=== PATIENT | male | born 1960 | race Hispanic/Latino ===

== ENCOUNTER 2016-09-04 10:30 | Emergency (ER) | payer SELFPAY ==
[2016-09-04 10:44] VITALS: BP 146/91
[2016-09-04] MEDS ORDERED: TORADOL IM ONE (11:55)
--- NOTE | 2016-09-04 11:59 | Emergency Department Report ---
HPI - General Chief Complaint: Fall Time Seen by Provider: 09/04/16 11:54 - HPI HPI: This is a 55-year-old male presents to the emergency department with complaint of left wrist pain after slipping on the ice and falling down a few stairs. He denies hitting his head or any loss of consciousness. He cannot member whether it was outstretched hand. He denies any deformity. He is right- hand dominant. He has not taken anything for symptoms prior to presentation. The patient drove himself in to be seen today. He does not currently have a primary care doctor. He does have previous history of surgery to that left wrist but does not have any current establish care with an orthopedist. ED Past Medical Hx - Past Medical History Previous Medical History?: Yes Additional medical history: DEPRESSION, left wrist pain - Surgical History Past Surgical History?: Yes Additional Surgical History: LEFT LOWER LEG --ORTHO SURGERY. NASAL SURGERY. LEFT WRIST SURGERY - Social History Smoking Status: Current Every Day Smoker Substance Use Type: Prescribed - Medications Home Medications: Home Medications Medication Instructions Recorded Confirmed Last Taken Type FLUoxetine [PROzac] 20 mg PO QDAY 09/04/16 09/04/16 Unknown History HYDROcodone/APAP 5-325 [[place] 1 each PO Q6HR PRN #14 tablet 09/04/16 Unknown Rx 5-325 mg TAB] ED Review of Systems ROS: Stated complaint: LEFT WRIST PAIN Other details as noted in HPI Comment: All other systems reviewed and negative Constitutional: denies: chills, fever Eyes: denies: eye pain, eye discharge, vision change ENT: denies: ear pain, throat pain Respiratory: denies: cough, shortness of breath, wheezing Cardiovascular: denies: chest pain, palpitations Endocrine: no symptoms reported Gastrointestinal: denies: abdominal pain, nausea, diarrhea Genitourinary: denies: urgency, dysuria Musculoskeletal: arthralgia. denies: back pain Skin: denies: rash, lesions Neurological: denies: headache, weakness, paresthesias Physical Exam - Physical Exam Vital Signs: Vital Signs 09/04/16 10:41 Temperature 97.6 F Pulse Rate 60 Respiratory 18 Rate Blood Pressure 146/91 O2 Sat by Pulse 100 Oximetry Physical Exam: GENERAL: The patient is well-developed well-nourished. HEENT: Normocephalic. Atraumatic. Extraocular motions are intact. Patient has moist mucous membranes. NECK: Supple. Trachea is midline. CHEST/LUNGS: Clear to auscultation. There is no respiratory distress noted. HEART/CARDIOVASCULAR: Regular. There is no tachycardia. There is no gallop rub or murmur. ABDOMEN: Abdomen is soft, nontender. SKIN: There is no rash. There is no edema. There is no diaphoresis. NEURO: The patient is awake, alert, and oriented. The patient is cooperative. The patient has no focal neurologic deficits. The patient has normal speech and gait. MUSCULOSKELETAL: Patient has tenderness to palpation to the circumferential left wrist but no obvious deformity. Decreased movement of the left hand at the wrist secondary to pain. Radial pulses +2 over 4 bilaterally. ED Course Vital Signs 09/04/16 10:41 Temperature 97.6 F Pulse Rate 60 Respiratory 18 Rate Blood Pressure 146/91 O2 Sat by Pulse 100 Oximetry ED Medical Decision Making - Radiology Data Radiology results: image reviewed interpreted by me: X-ray of the left wrist does not show any fracture or deformity or any acute process. - Medical Decision Making 55-year-old male presents to the emergency department with left wrist pain after a slip and fall the ice. No obvious deformity but he has some decreased movement secondary to pain. X-ray does not show any fracture, dislocation or any acute process. Patient placed in a orthopedic splint and will be given a referral for a refill for follow-up. Pain medication and anti-inflammatory's. He will return to the ER with any worsening of symptoms or any acute distress. - Differential Diagnosis wrist fracture, dislocation, strain/sprain, contusion, tendinitis Critical Care Time: No Critical care attestation.: If time is entered above; I have spent that time in minutes in the direct care of this critically ill patient, excluding procedure time. ED Disposition Clinical Impression: Left wrist pain Fall Qualifiers: Encounter type: initial encounter Qualified Code(s): W19.XXXA - Unspecified fall, initial encounter Disposition: DISCHARGED TO HOME OR SELFCARE Is pt being admited?: No Does the pt Need Aspirin: No Condition: Good Instructions: Arthralgia (ED), Wrist Injury (ED), Fall Prevention (ED) Additional Instructions: Please follow-up with the orthopedist that you have been given a referral to, Dr. Saldana. Return to the emergency department with any worsening of your symptoms or any acute distress. You've been prescribed a medication that is sedating. Therefore this medication cannot be mixed with alcohol, or taken prior to driving, working, or being responsible for children. Prescriptions: HYDROcodone/APAP 5-325 [[place] 5-325 mg TAB] 1 each PO Q6HR PRN #14 tablet PRN Reason: Pain Referrals: PRIMARY CARE, [Primary Care Provider] - 3-5 Days CLAUDIA SALDANA MD [Staff Physician] - 3-5 Days Time of Disposition: 12:19
--- NOTE | 2016-09-05 11:20 | XRay Report ---
LEFT WRIST, 4 views: HISTORY: Left wrist pain. Routine views demonstrate the carpal bones to be well mineralized with well preserved bony mineralization and interosseous joint spaces. The carpal and adjacent articular bones have normal contours. The surrounding soft tissues are unremarkable. IMPRESSION: Normal study.
== END 2016-09-04 12:39 | disposition home or self-care (01) ==
LOC: ED 10:30
DX: M25.532 Pain in left wrist (principal); F17.200 Nicotine dependence, unspecified, uncomplicated; Z98.890 Other specified postprocedural states; W10.8XXA Fall (on) (from) other stairs and steps, initial encounter
CPT/HCPCS: 29125; 73110; 96372; 99283; J1885

== ENCOUNTER 2017-06-13 18:53 | Emergency (ER) | payer SELFPAY ==
[2017-06-13 20:05] VITALS: BP 151/75
[2017-06-13 20:17] LABS: Basophils % (Auto) 0.3 % (0.0-1.8); Eosinophils % (Auto) 1.8 % (0.0-4.3); Hematocrit 47.2 % (35.5-45.6); Hemoglobin 16.3 gm/dl (11.8-15.2); Mean Corpuscular HGB Conc 35 % (32-34); Mean Corpuscular Hemoglobin 33 pg (28-32); Mean Corpuscular Volume 96 fl (84-94); Platelet Count 307 K/mm3 (140-440); Red Blood Count 4.92 M/mm3 (3.65-5.03); White Blood Count 9.9 K/mm3 (4.5-11.0)
[2017-06-13 20:28] LABS: Alanine Aminotransferase 27 units/L (7-56); Albumin 4.2 g/dL (3.9-5); Albumin/Globulin Ratio 1.3 %; Alkaline Phosphatase 85 units/L (35-129); Anion Gap 17 mmol/L; BUN/Creatinine Ratio 8; Blood Urea Nitrogen 6 mg/dL (9-20); Carbon Dioxide 27 mmol/L (22-30); Chloride 101.3 mmol/L (98-107); Glucose 181 mg/dL (75-100); Potassium 3.9 mmol/L (3.6-5.0); Sodium 141 mmol/L (137-145); Total Protein 7.5 g/dL (6.3-8.2)
--- NOTE | 2017-06-13 21:26 | XRay Report ---
FINAL REPORT EXAM: XR CHEST ROUTINE 2V HISTORY: Shortness of breath TECHNIQUE: Two view chest PA and lateral PRIORS: None. FINDINGS: Cardiac and mediastinal contours are unremarkable. No focal pulmonary infiltrate is identified. No pleural fluid collection seen. Pulmonary vasculature is unremarkable. IMPRESSION: Negative two-view chest
[2017-06-14] MEDS ORDERED: TYLENOL/CODEINE PO ONE (02:40)
--- NOTE | 2017-06-14 02:45 | Emergency Department Report ---
Pediatric URI - HPI Chief Complaint: Upper Respiratory Infection Stated Complaint: COUGH/SORE THROAT/CONGESTION Duration: 3 weeks Severity: Mild Symptoms: Yes Sore Throat, Yes Cough, Yes Able to Tolerate Fluids, Yes Good Urine Output, No Rhinorrhea, No Ear Pain, No Shortness of Breath, No Sick Contacts, No Listless Behavior Other History: 56 year old male presents to ED with productive cough x3 weeks and congestion and sore throat x4 days. patient states he is 40+ year smoker but is unsure if he has COPD. patient denies being diabetic or asthmatic. patient is stable, neurologically intact and in no acute distress. patient has had bloodwork ordered prior to being seen or discussed with me. ED Review of Systems ROS: Stated complaint: COUGH/SORE THROAT/CONGESTION Other details as noted in HPI Constitutional: denies: chills, fever Eyes: denies: eye pain, eye discharge, vision change ENT: denies: ear pain, throat pain Respiratory: cough. denies: shortness of breath, wheezing Cardiovascular: denies: chest pain, palpitations Endocrine: no symptoms reported Gastrointestinal: denies: abdominal pain, nausea, diarrhea Genitourinary: denies: urgency, dysuria Musculoskeletal: denies: back pain, joint swelling, arthralgia Skin: denies: rash, lesions Neurological: denies: headache, weakness, paresthesias Psychiatric: denies: anxiety, depression Hematological/Lymphatic: denies: easy bleeding, easy bruising Pediatric Past Medical History - Surgeries & Procedures Additional Surgical History: LEFT LOWER LEG --ORTHO SURGERY. NASAL SURGERY. LEFT WRIST SURGERY - Chronic Health Problems Additional medical history: DEPRESSION, left wrist pain ED Peds URI Exam - Exam General: Vital signs noted. No distress. Alert and acting appropriately. HEENT: Yes Moist Mucous Membranes, No Pharyngeal Erythema, No Pharyngeal Exudates, No Rhinorrhea, No Conjuctival Injection Ear: Neither TM Bulge, Neither TM Erythema Neck: Yes Supple, No Adenopathy Lungs: Yes Good Air Exchange, Yes Cough, No Wheezes, No Ronchi, No Stridor, No Labored Respirations, No Retractions, No Use of Accessory Muscles, No Other Abnormal Lung Sounds Heart: Yes Regular, No Murmur Abdomen: Yes Normal Bowel Sounds, No Tenderness, No Peritoneal Signs Skin: No Rash, No Eczema Neurologic: Alert and oriented, no deficits. Musculoskeletal: Unremarkable. ED Course Vital Signs 06/13/17 19:40 Temperature 98.7 F Pulse Rate 78 Respiratory 18 Rate Blood Pressure 151/75 [Right] O2 Sat by Pulse 100 Oximetry ED Medical Decision Making - Lab Data Result diagrams: 06/13/17 19:46 06/13/17 19:46 Laboratory Results - last 24 hr 06/13/17 06/13/17 06/13/17 19:46 19:46 19:46 WBC 9.9 RBC 4.92 Hgb 16.3 H Hct 47.2 H MCV 96 H MCH 33 H MCHC 35 H RDW 14.0 Plt Count 307 Lymph % (Auto) 39.6 H Smith % (Auto) 4.6 Eos % (Auto) 1.8 Baso % (Auto) 0.3 Lymph # 3.9 Smith # 0.5 Eos # 0.2 Baso # 0.0 Seg Neutrophils % 53.7 Seg Neutrophils # 5.3 Sodium 141 Potassium 3.9 Chloride 101.3 Carbon Dioxide 27 Anion Gap 17 BUN 6 L Creatinine 0.8 Estimated GFR > 60 BUN/Creatinine Ratio 8 Glucose 181 H Lactic Acid 1.60 Calcium 9.0 Total Bilirubin 0.50 AST 23 ALT 27 Alkaline Phosphatase 85 Troponin T < 0.010 C-Reactive Protein NT-Pro-B Natriuret Pep Total Protein 7.5 Albumin 4.2 Albumin/Globulin Ratio 1.3 TSH 06/13/17 06/14/17 19:46 02:23 WBC RBC Hgb Hct MCV MCH MCHC RDW Plt Count Lymph % (Auto) Smith % (Auto) Eos % (Auto) Baso % (Auto) Lymph # Smith # Eos # Baso # Seg Neutrophils % Seg Neutrophils # Sodium Potassium Chloride Carbon Dioxide Anion Gap BUN Creatinine Estimated GFR BUN/Creatinine Ratio Glucose Lactic Acid Calcium Total Bilirubin AST ALT Alkaline Phosphatase Troponin T C-Reactive Protein 1.00 NT-Pro-B Natriuret Pep 51.32 Total Protein Albumin Albumin/Globulin Ratio TSH 1.720 - Radiology Data Radiology results: report reviewed XR chest Negative two view chest - Medical Decision Making 56 year old male presents to ED with 3week cough, congestion and sore throat x4 days. patient has negative strep and normal imaging study. patient is stable, neurologically intact and in no acute distress. patient will be placed on short course of PO Abx due to duration of symptoms and patient being unsure if he has COPD. Critical care attestation.: If time is entered above; I have spent that time in minutes in the direct care of this critically ill patient, excluding procedure time. ED Disposition Clinical Impression: Bronchitis Disposition: DC- TO HOME OR SELFCARE Is pt being admited?: No Does the pt Need Aspirin: No Condition: Stable Instructions: Acute Bronchitis (ED) Prescriptions: Azithromycin [Zithromax Z-MARIAN] 250 mg PO QAM #1 pack Fluticasone [Flonase] 1 spray NS QDAY #1 bottle methylPREDNISolone [Medrol] 4 mg PO QAM #1 tab.ds.pk Referrals: [facility] [Outside] - 2-3 Days ALEXANDRA SHELTON MD [Staff Physician] - 2-3 Days
== END 2017-06-14 03:14 | disposition home or self-care (01) ==
LOC: ED 18:53
DX: J40 Bronchitis, not specified as acute or chronic (principal)
CPT/HCPCS: 36415; 71020; 80053; 82140; 83880; 84443; 84484; 85025; 86140; 87116; 87430; 93005; 93010; 99284

== ENCOUNTER 2019-03-13 09:51 | Inpatient (IN) | payer OTHER ==
--- NOTE | 2019-03-13 10:52 | Emergency Department Report ---
HPI - General Chief Complaint: Weakness Time Seen by Provider: 03/13/19 10:36 - HPI HPI: 58 yo C M presents to the ED via EMS from home with the complaint of generalized weakness and fatigue since yesterday. He had some N/V/D last night but that has since resolved. No fever, CP, SOB, DOZIER. He has a pmhx of HTN, DM, and high cholesterol but it does not appear he is on medication for this. No recent travel or sick contacts at home. No PCP. He is a tobacco smoker but denies illicit drugs or heavy alcohol use. ED Past Medical Hx - Past Medical History Previous Medical History?: Yes Hx Hypertension: Yes Hx Diabetes: Yes Additional medical history: DEPRESSION, left wrist pain - Surgical History Past Surgical History?: Yes Additional Surgical History: LEFT LOWER LEG --ORTHO SURGERY. NASAL SURGERY. LEFT WRIST SURGERY - Social History Smoking Status: Unknown if ever smoked - Medications Home Medications: Home Medications Medication Instructions Recorded Confirmed Last Taken Type No Known Home Medications [No 03/13/19 03/13/19 Unknown History Reported Home Medications] ED Review of Systems ROS: Stated complaint: MALAISE/WEAKNESS Other details as noted in HPI Comment: All other systems reviewed and negative Constitutional: weakness, other (fatigue). denies: chills, fever Eyes: denies: eye pain, vision change ENT: denies: ear pain, throat pain Respiratory: denies: cough, shortness of breath Cardiovascular: denies: chest pain, palpitations Gastrointestinal: nausea, vomiting, diarrhea. denies: abdominal pain Genitourinary: denies: dysuria, discharge Musculoskeletal: denies: back pain, arthralgia Skin: denies: rash, lesions Neurological: denies: headache, numbness, paresthesias Physical Exam - Physical Exam Vital Signs: Vital Signs 03/13/19 03/13/19 10:12 10:13 Temperature 98.4 F 98.4 F Pulse Rate 67 67 Respiratory 18 18 Rate Blood Pressure 158/67 Blood Pressure 158/67 [Left] O2 Sat by Pulse 93 93 Oximetry Physical Exam: GENERAL: The patient is well-developed well-nourished. HENT: Normocephalic. Atraumatic. Patient has moist mucous membranes. EYES: Extraocular motions are intact. Pupils equal reactive to light bilaterally. NECK: Supple. Trachea is midline. CHEST/LUNGS: Clear to auscultation. There is no respiratory distress noted. HEART/CARDIOVASCULAR: Regular. There is no tachycardia. There is no murmur. ABDOMEN: Abdomen is soft, nontender. Patient has normal bowel sounds. There is no abdominal distention. SKIN: Skin is warm and dry. NEURO: The patient is awake, alert, and oriented. The patient is cooperative. Patient has normal speech. No facial asymmetry. No pronator drift. MUSCULOSKELETAL: There is no tenderness or deformity. There is no limitation range of motion. There is no evidence of acute injury. ED Course Vital Signs 03/13/19 03/13/19 10:12 10:13 Temperature 98.4 F 98.4 F Pulse Rate 67 67 Respiratory 18 18 Rate Blood Pressure 158/67 Blood Pressure 158/67 [Left] O2 Sat by Pulse 93 93 Oximetry ED Medical Decision Making - Lab Data Result diagrams: 03/14/19 04:52 03/14/19 04:52 - EKG Data -: EKG Interpreted by Nd EKG shows normal: sinus rhythm, axis, intervals, QRS complexes, ST-T waves Rate: normal - EKG Data When compared to previous EKG there are: previous EKG unavailable Interpretation: normal EKG - Radiology Data Radiology results: report reviewed CT HEAD WITHOUT CONTRAST INDICATION / CLINICAL INFORMATION: weakness. Headache TECHNIQUE: Axial imaging performed from the skull apex through the skull base without the use of contrast. All CT scans at this location are performed using CT dose reduction for ALARA by means of automated exposure control. COMPARISON: None available. FINDINGS: HEMORRHAGE: None. EXTRA-AXIAL SPACES: Normal in size and morphology for the patient's age. VENTRICULAR SYSTEM: Normal in size and morphology for the patient's age. CEREBRAL PARENCHYMA: No significant abnormality. No acute territorial infarct. MIDLINE SHIFT OR HERNIATION: None. CEREBELLUM / BRAINSTEM: No significant abnormality. ORBITS: Normal as visualized. SOFT TISSUES of HEAD: No significant abnormality. CALVARIUM: No significant abnormality. PARANASAL SINUSES / MASTOID AIR CELLS: Normal as visualized. ADDITIONAL FINDINGS: None. IMPRESSION: 1. No acute intracranial abnormality. CTA head with intravenous contrast CLINICAL HISTORY: weakness, dizziness, difficulty with ambulation TECHNIQUE: 0.625 mm thick contiguous axial scans were obtained from the skull base to the skull vertex during rapid bolus administration of intravenous contrast material. Multiplanar reconstructions were produced in the coronal and sagittal planes. In addition 3 plane MIP instructions were produced and reviewed for this report. The axial source images and reconstructed images were reviewed for this report. All CT scans at this location are performed using CT dose reduction for ALARA by means of automated exposure control. FINDINGS: Calcified atherosclerotic plaque is seen along the course of the cavernous segments of both internal carotid arteries. There is no associated stenosis. There is no indication of intracranial stenosis or large vessel occlusion. There is no indication of vasculitis. There is no evidence of aneurysm or other vascular malformation. IMPRESSION: No indication of hemodynamically significant stenosis, large vessel occlusion or aneurysm. CONTRAST DOSE REPORT: Omnipaque 350: 100 ml administered intravenously. CTA neck with intravenous contrast material CLINICAL HISTORY: weakness, dizziness, difficulty with ambulation TECHNIQUE: Following acquisition of a timing bolus 0.63 mm thick contiguous axial scans were obtained from aortic arch to the skull base during rapid bolus intravenous contrast infusion. In addition to evaluation of axial source images multiplanar reconstructions were produced and reviewed for this report. Three-dimensional reconstructions were produced utilizing an independent workstation. These were also reviewed for this report. FINDINGS: No abnormalities are seen at the origins of the great vessels. Common carotid arteries, carotid bifurcations and cervical portions of the internal carotid arteries all have a normal appearance. There is no indication of hemodynamically significant stenosis. The right vertebral artery is dominant. There is no indication of stenosis along the course of the vertebral arteries. Both vertebral arteries contribute to the basilar artery origin. The basilar artery has an unremarkable appearance. The degree of stenosis, if any, is determined utilizing NASCET like criteria. In this case there is no indication of hemodynamically significant stenosis. Evaluation of the nonvascular soft tissue structures reveal no abnormality. There is no indication of cervical lymphadenopathy. No abnormalities are seen along the course of the airway. Visualized portions of the parotid glands and the submandibular salivary glands have a normal appearance. Thyroid gland has a normal appearance. Evaluation of the lung apices reveals no evidence of lung nodule or infiltrate. Evaluation of the cervical spine revealed no significant abnormalities. IMPRESSION: 1. No indication of hemodynamically significant stenosis at the carotid bifurcations or elsewhere on CTA neck. - Medical Decision Making This patient presents to the emergency department with a complaint of some generalized weakness and fatigue. On examination he has a little bit of ataxia but otherwise there is no facial asymmetry, pronator drift, slurred speech. The patient has full range of motion and muscle strength with laying on the gurney. Later in his ED course, we attempted to get him up and he does appear unsteady. He had a CT scan of the head without contrast that did not show any bleed, shift, mass, ischemia or any other acute process. His labs have been mostly unremarkable and do not show any etiology of his symptoms. Vital signs stable throughout his ED course including being afebrile. However the patient continues to have this generalized weakness, difficulty with ambulation and some signs of ataxia. He will be admitted to the hospital for further evaluation and treatment and was accepted for admission by the hospitalist, Dr Benson. The patient just completed a CT angiography of the head and neck, but the results are pending. In reviewing the patient's records, CTA of the head and neck did not show any acute process. But subsequently the patient has had a brain MRI that showed a cerebellum acute infarct showing CVA and brain MRA has shown some vertebral stenosis or occlusion. - Differential Diagnosis electrolyte abnormalities, hyperlipoidemia, CVA, TIA, dysrhythmia Critical Care Time: Yes Critical care time in (mins) excluding proc time.: 35 Critical care attestation.: If time is entered above; I have spent that time in minutes in the direct care of this critically ill patient, excluding procedure time. Critical care time was spent on this patient during his initial evaluation, multiple re- evaluations, ordering interpretation of labs and imaging. Critical Care Time: 35 minutes ED Disposition Clinical Impression: Ataxia, Weakness, Unable to ambulate Hypertension Qualifiers: Hypertension type: essential hypertension Qualified Code(s): I10 - Essential (primary) hypertension Fatigue Qualifiers: Fatigue type: unspecified Qualified Code(s): R53.83 - Other fatigue Disposition: DC-09 OP ADMIT IP TO THIS HOSP Is pt being admited?: Yes Condition: Serious Time of Disposition: 17:57 - Assessment Assessment Interval: Baseline - Level of Consciousness 1a. Level of Consciousness: alert/keenly responsive - LOC Questions 1b. LOC Questions: answers both correctly - LOC Command 1c. LOC Commands: performs tasks correctly - Best Gaze 2. Best Gaze: normal - Visual 3. Visual: no visual loss - Facial Palsy 4. Facial Palsy: normal symmetrical movement - Motor Arm 5a. Motor Arm Left: no drift 5b. Motor Arm Right: no drift - Motor Leg 6a. Motor Leg Left: no drift 6b. Motor Leg Right: no drift - Limb Ataxia 7. Limb Ataxia: present 2 limbs - Sensory 8. Sensory: normal - Best Language 9. Best Language: no aphasia - Dysarthria 10. Dysarthria: normal - Extinction and Inattention 11. Extinction/Inattention: no abnormality - Scoring Total Score: 2 Stroke Severity: Minor Stroke
[2019-03-13 11:26] LABS: Basophils # (Auto) 0.1 K/mm3 (0.0-0.1); Basophils % (Auto) 0.7 % (0.0-1.8); Hematocrit 47.7 % (35.5-45.6); Hemoglobin 16.6 gm/dl (11.8-15.2); Lymphocytes # (Auto) 1.3 K/mm3 (1.2-5.4); Lymphocytes % (Auto) 12.1 % (13.4-35.0); Mean Corpuscular HGB Conc 35 % (32-34); Mean Corpuscular Hemoglobin 34 pg (28-32); Mean Corpuscular Volume 97 fl (84-94); Monocytes # (Auto) 0.3 K/mm3 (0.0-0.8); Monocytes % (Auto) 2.6 % (0.0-7.3); Platelet Count 281 K/mm3 (140-440); Red Blood Count 4.94 M/mm3 (3.65-5.03); Red Cell Distribution Width 14.3 % (13.2-15.2)
[2019-03-13 11:46] LABS: Alanine Aminotransferase 29 units/L (7-56); Albumin 4.5 g/dL (3.9-5); BUN/Creatinine Ratio 14; Blood Urea Nitrogen 11 mg/dL (9-20); Calcium 9.2 mg/dL (8.4-10.2); Hemolysis Index 12
--- NOTE | 2019-03-13 12:42 | Cat Scan Report ---
CT HEAD WITHOUT CONTRAST INDICATION / CLINICAL INFORMATION: weakness. Headache TECHNIQUE: Axial imaging performed from the skull apex through the skull base without the use of cont rast. All CT scans at this location are performed using CT dose reduction for ALARA by means of auto mated exposure control. COMPARISON: None available. FINDINGS: HEMORRHAGE: None. EXTRA-AXIAL SPACES: Normal in size and morphology for the patient's age. VENTRICULAR SYSTEM: Normal in size and morphology for the patient's age. CEREBRAL PARENCHYMA: No significant abnormality. No acute territorial infarct. MIDLINE SHIFT OR HERNIATION: None. CEREBELLUM / BRAINSTEM: No significant abnormality. ORBITS: Normal as visualized. SOFT TISSUES of HEAD: No significant abnormality. CALVARIUM: No significant abnormality. PARANASAL SINUSES / MASTOID AIR CELLS: Normal as visualized. ADDITIONAL FINDINGS: None. IMPRESSION: 1. No acute intracranial abnormality. Signer Name: Chuck Kaye Jr, MD Signed: 03/13/2019 12:38 PM Workstation Name: [id number]
[2019-03-13 13:50] LABS: Bilirubin,Urine NEG (Negative); Blood,Urine NEG (Negative); Color,Urine Yellow (Yellow); Mucus,Urine FEW /HPF; Protein,Urine <15 mg/dL mg/dL (Negative); Urobilinogen,Urine < 2.0 mg/dL (<2.0); WBC,Urine < 1.0 /HPF (0.0-6.0)
[2019-03-13 14:00] LABS: Amphetamine Screen,Urine PRESUMPTIVE NEGATIVE; Benzodiazepines Screen,Urine PRESUMPTIVE NEGATIVE; Cannabinoid Screen,Urine PRESUMPTIVE NEGATIVE; Cocaine Screen,Urine PRESUMPTIVE NEGATIVE; Methadone Screen,Urine PRESUMPTIVE NEGATIVE; Opiate Screen,Urine PRESUMPTIVE NEGATIVE
[2019-03-13] MEDS ORDERED: NACL 0.9% 1000 ML 1,000 ML IV ONE (14:05)
[2019-03-13] MEDS ORDERED: ZOFRAN ONE (18:37)
[2019-03-13] MEDS ORDERED: ZOFRAN IV ONE (18:46)
--- NOTE | 2019-03-13 20:13 | Cat Scan Report ---
CTA head with intravenous contrast CLINICAL HISTORY: weakness, dizziness, difficulty with ambulation TECHNIQUE: 0.625 mm thick contiguous axial scans were obtained from the skull base to the skull vertex during ra pid bolus administration of intravenous contrast material. Multiplanar reconstructions were produced in the coronal and sagittal planes. In addition 3 plane MIP instructions were produced and reviewed f or this report. The axial source images and reconstructed images were reviewed for this report. All CT scans at this location are performed using CT dose reduction for ALARA by means of automated e xposure control. FINDINGS: Calcified atherosclerotic plaque is seen along the course of the cavernous segments of both internal carotid arteries. There is no associated stenosis. There is no indication of intracranial stenosis or large vessel occlusion. There is no indication of vasculitis. There is no evidence of aneurysm or other vascular malformation. IMPRESSION: No indication of hemodynamically significant stenosis, large vessel occlusion or aneurysm. CONTRAST DOSE REPORT: Omnipaque 350: 100 ml administered intravenously. CTA neck with intravenous contrast material CLINICAL HISTORY: weakness, dizziness, difficulty with ambulation TECHNIQUE: Following acquisition of a timing bolus 0.63 mm thick contiguous axial scans were obtained from aorti c arch to the skull base during rapid bolus intravenous contrast infusion. In addition to evaluation of axial source images multiplanar reconstructions were produced and reviewed for this report. Three- dimensional reconstructions were produced utilizing an independent workstation. These were also revie wed for this report. FINDINGS: No abnormalities are seen at the origins of the great vessels. Common carotid arteries, carotid bifurcations and cervical portions of the internal carotid arteries all have a normal appearance. There is no indication of hemodynamically significant stenosis. The right vertebral artery is dominant. There is no indication of stenosis along the course of the ve rtebral arteries. Both vertebral arteries contribute to the basilar artery origin. The basilar artery has an unremarkable appearance. The degree of stenosis, if any, is determined utilizing NASCET like criteria. In this case there is no indication of hemodynamically significant stenosis. Evaluation of the nonvascular soft tissue structures reveal no abnormality. There is no indication of cervical lymphadenopathy. No abnormalities are seen along the course of the airway. Visualized porti ons of the parotid glands and the submandibular salivary glands have a normal appearance. Thyroid gla nd has a normal appearance. Evaluation of the lung apices reveals no evidence of lung nodule or infil trate. Evaluation of the cervical spine revealed no significant abnormalities. IMPRESSION: 1. No indication of hemodynamically significant stenosis at the carotid bifurcations or elsewhere on CTA neck. Contrast dose report: Omnipaque 350: 100 ml, administered intravenously All CT examinations performed at this facility utilize modulated dose reduction, iterative reconstruc tion or weight-based dosing, as appropriate, to obtain a radiation dose which is as low as can reason ably be achieved. Signer Name: Jude Yin MD Signed: 03/13/2019 8:08 PM Workstation Name: [id number] Signer Name: Jude Yin MD Signed: 03/13/2019 8:09 PM Workstation Name: [id number]
[2019-03-13] MEDS ORDERED: D50W (25GM) Syringe IV PRN (22:25)
--- NOTE | 2019-03-13 23:49 | Event Note ---
Date: 03/13/19 See dictated history and physical in the reports Ataxia--rule out cerebrovascular accident Dehydration
[2019-03-13] MEDS ORDERED: TYLENOL PO PRN (23:55)
[2019-03-13] MEDS ORDERED: REGLAN IV PRN (23:55)
[2019-03-13] MEDS ORDERED: SODIUM CHLORIDE FLUSH SYRINGE 10 ML IV PRN (23:55)
[2019-03-13] MEDS ORDERED: PERCOCET 5/325 PO PRN (23:55)
--- NOTE | 2019-03-14 00:06 | History and Physical Report ---
CHIEF COMPLAINT: 1. Nausea, vomiting, and diarrhea since last night. 2. Severe weakness. 3. Difficulty walking. HISTORY OF PRESENT ILLNESS: A 58-year-old with history of hypertension, diabetes, and depression, comes in for persistent nausea and vomiting since last night and also diarrhea. The patient feels very weak and states that he is not able to stand and walk. The patient feels very dehydrated. No fever, no chills. PAST MEDICAL HISTORY: Significant for hypertension, diabetes, and depression. PAST SURGICAL HISTORY: Left lower leg orthopedic surgery, left wrist surgery. SOCIAL HISTORY: Does not smoke. No alcohol, no recreational drugs. FAMILY HISTORY: Hypertension. CURRENT MEDICATIONS: None. REVIEW OF SYSTEMS: Significant for nausea, vomiting, diarrhea for the last 24 hours. Also unable to walk, very unsteady while standing. Otherwise, review of systems negative. PHYSICAL EXAMINATION: GENERAL: Middle-aged male, cooperative during examination. VITAL SIGNS: Temperature 98.4, pulse is 67, respirations are 18, blood pressure 158/67. HEENT: Unremarkable. Pupils equal and reactive. Tongue is dry. NECK: Supple, no lymphadenopathy, no thyromegaly. LUNGS: Clear to auscultation and percussion. Good air entry. CARDIOVASCULAR: S1, S2 heard. No gallop, no murmur, no rub. Apical impulse in left fifth intercostal space and midclavicular line. ABDOMEN: Soft and benign. No hepatosplenomegaly. No guarding, no rigidity. Hernial orifices are normal. EXTREMITIES: Good pedal pulses. No pedal edema. CENTRAL NERVOUS SYSTEM: Alert and oriented x 4. Nonfocal exam. The patient ataxic and unable to walk, but no focal weakness. LABORATORY DATA: Significant for white count of 11,100, H and H of 16.6 and 47.7, platelet count is 281,000. ABG: pH of 7.4, pCO2 of 37.3, pO2 of 67, bicarbonate of 23.3. Sodium is 139, potassium is 5.1, glucose is 286. LFTs are normal. Drug screen was negative. Head CT shows no acute findings, no acute intracranial abnormalities. Head CTA was normal; no indication of hemodynamically significant stenosis. Neck CTA was normal. ASSESSMENT AND PLAN: 1. Acute dehydration secondary to severe nausea, vomiting, dehydration. Treat symptomatically. 2. Hyperkalemia, mild, should resolve with IV fluids. 3. Ataxia, rule out cerebrovascular accident, especially posterior cerebral circulation. We will get MRI/MRA, echocardiogram and carotid duplex scan. 4. Hypertension. Add losartan 50 mg daily. 5. Type 2 diabetes. Accu-Chek, hemoglobin A1c. Start on glimepiride 2 mg p.o. daily. The patient not on any medications, Accu-Cheks a.c. and at bedtime and coverage. 6. Deep venous thrombosis prophylaxis. Lovenox 40 mg subcutaneous daily. JOB# [id number] VSM/NTS
[2019-03-14] MEDS: PEPCID IV SCH ×3 (00:44→21:35)
[2019-03-14] MEDS: NACL 0.9% 1000 ML 1,000 ML IV SCH ×2 (00:44→16:53)
[2019-03-14] MEDS ORDERED: SODIUM CHLORIDE FLUSH SYRINGE 10 ML IV PRN (01:19)
[2019-03-14] MEDS: ZOFRAN IV PRN ×2 (06:08→13:13)
[2019-03-14 07:07] LABS: Alanine Aminotransferase 25 units/L (7-56); BUN/Creatinine Ratio 17; Blood Urea Nitrogen 12 mg/dL (9-20); Calcium 8.6 mg/dL (8.4-10.2); Hemolysis Index 13
[2019-03-14 07:18] LABS: Basophils # (Auto) 0.1 K/mm3 (0.0-0.1); Basophils % (Auto) 0.4 % (0.0-1.8); Eosinophils # (Auto) 0.1 K/mm3 (0.0-0.4); Eosinophils % (Auto) 0.6 % (0.0-4.3); Hematocrit 47.6 % (35.5-45.6); Hemoglobin 16.2 gm/dl (11.8-15.2); Lymphocytes # (Auto) 2.6 K/mm3 (1.2-5.4); Lymphocytes % (Auto) 20.7 % (13.4-35.0); Mean Corpuscular HGB Conc 34 % (32-34); Mean Corpuscular Hemoglobin 33 pg (28-32); Mean Corpuscular Volume 98 fl (84-94); Monocytes # (Auto) 0.9 K/mm3 (0.0-0.8); Platelet Count 263 K/mm3 (140-440); Red Blood Count 4.88 M/mm3 (3.65-5.03); Red Cell Distribution Width 14.4 % (13.2-15.2)
[2019-03-14] MEDS: HumuLIN R SUB-Q SCH ×4 (08:45→21:38)
--- NOTE | 2019-03-14 10:38 | Vascular Lab Report ---
"DUPLEX DOPPLER ULTRASOUND CAROTID, BILATERAL INDICATION: stroke. FINDINGS: RIGHT CAROTID: Mild atherosclerotic plaque. Right CCA velocity: 123 cm/sec. Right ICA peak systolic velocity: 82 cm/sec. ICA/CCA PSV Ratio: Normal. Right Vertebral Artery: Antegrade flow. LEFT CAROTID: Mild atherosclerotic plaque. Left CCA velocity: 108 cm/sec. Left ICA peak systolic velocity: 98 cm/sec. ICA/CCA PSV Ratio: Normal. Left Vertebral Artery: Antegrade flow. IMPRESSION: 1. Right Internal Carotid Artery: Less than 50% diameter stenosis. 2. Left Internal Carotid Artery: Less than 50% diameter stenosis. Velocity criteria are extrapolated from diameter data as defined by the Society of Radiologists in Ul trasound Consensus Conference, Radiology 2003; 229;340-346. Degree of Stenosis (%) || ICA PSV (cm/sec) || Plaque estimate (%) || ICA/CCA PSV Ratio Normal <125 None <2.0 <50 <125 <50 <2.0 50-69 125-230 50 2.0-4.0 70 but less than 100 >230 50 >4.0 Near occlusion High, low, or none visible variable Total occlusion None visible; no lumen N/A Signer Name: Oleagrio Bernal MD Signed: 03/14/2019 10:33 AM Workstation Name: [id number]"
--- NOTE | 2019-03-14 11:43 | Magnetic Resonance Report ---
MRI BRAIN WITHOUT CONTRAST INDICATION / CLINICAL INFORMATION: stroke. TECHNIQUE: Multiplanar, multisequence MR images of the brain were obtained. COMPARISON: None available. FINDINGS: BRAIN / INTRACRANIAL CONTENTS: There is acute infarct involving the superior right cerebellum measuri ng of 4.0 cm in greatest transverse dimension. This finding would be within the right superior cerebe llar artery distribution and appears to involve the right superior cerebellar peduncle. There is asso ciated edema with mild degree of mass effect. The ventricular system appears appropriate in size give n the mild degree of cerebral atrophy. The brain otherwise demonstrate appropriate signal characteristics for age. The diffusion imaging rev eals no evidence of acute supratentorial infarct at. No extra-axial fluid collections are identified at. CRANIOCERVICAL JUNCTION: No significant abnormality. VASCULAR FLOW-VOIDS: No significant abnormality. ORBITS: No significant abnormality of visualized orbits. SINUSES / MASTOIDS: No significant abnormality of the visualized paranasal sinuses or mastoid air pako ls. ADDITIONAL FINDINGS: None. IMPRESSION: 1. There is an acute to infarct involving the superior right cerebellum as detailed above. Signer Name: Bethel Sy MD Signed: 03/14/2019 11:39 AM Workstation Name: [id number]
--- NOTE | 2019-03-14 11:56 | Magnetic Resonance Report ---
MR a head without contrast Clinical history: Cerebrovascular accident, weakness FINDINGS: The motion degrades the image quality. However, there is absence of signal within the proxi mal intracranial segments of the vertebral arteries bilaterally compatible with occlusion or very slo w flow. Furthermore, there appear to be a thrombus within the dominant right vertebral artery this re gion on the CTA of 03/13/2019. Flow is seen within the basilar artery though there is mild irregularit y. Furthermore, there is mild to moderate smooth narrowing of the more distal basilar artery. Acute i nfarct was seen within the right superior cerebellar artery territory on the copy MRI. Findings are compatible with mild atherosclerotic disease involving the distal internal carotid arter ies. However, there is no significant focal stenosis involving the anterior circulation vessels by NA SCET criteria. There is mild develop mental hypoplasia of the A1 segment of the right LALO. There is n o clear MRA evidence of intracranial aneurysm. IMPRESSION: There is absence of signal within the proximal intracranial segments of the vertebral arteries indica tive of occlusion or very slow flow. There is reconstitution of flow within the basilar artery though there is irregularity of this vessel with mild to moderate narrowing distally. Signer Name: Bethel Sy MD Signed: 03/14/2019 11:52 AM Workstation Name: [id number]
[2019-03-14] MEDS: SODIUM CHLORIDE FLUSH SYRINGE 10 ML IV SCH ×2 (12:14→21:35)
--- NOTE | 2019-03-14 15:57 | Progress Note ---
Assessment and Plan Assessment and plan: --Ataxia/unsteady gait Secondary to acute cerebellar infarct Fall precautions, physical therapy occupational therapy, supportive care --Acute Cerebellar infarct: Not a candidate for TPA Aspirin and statin, fall precautions Physical therapy occupational therapy, rehabilitation Workup so far: CT head without contrast; no acute abnormality noted CTA head; no hemodynamically significant stenosis large vessel occlusion or aneurysm CTA neck; no hemodynamically significant stenosis MRI brain: Acute infarct involving the superior right cerebellum MRA Brain: Absence of significant proximal intracranial segments of the vertebral arteries indicative of occlusion of the bases mild to moderate narrowing of the basilar artery distally. Carotid Doppler; no hemodynamically significant stenosis Echocardiogram; pending --DVT prophylaxis; Lovenox --Type 2 diabetes mellitus; Accu-Chek sliding scale coverage and ADA diet Insulin as needed, A1c 8.2 Follow neurology evaluation and recommendations Monitor closely and adjust management as needed DC planning per case management; possible home with home health versus subacute as needed History Interval history: Patient seen and examined medical records reviewed Complaints of unsteady gait and confusion dizziness Workup is in progress Alert awake oriented Vital signs reviewed Hospitalist Physical - Constitutional Vitals: Temp Pulse Resp BP Pulse Ox 98.3 F 50 L 18 146/70 93 03/14/19 07:33 03/14/19 10:00 03/14/19 10:00 03/14/19 07:33 03/14/19 07:33 General appearance: Present: no acute distress, well-nourished - EENT Eyes: Present: PERRL, EOM intact - Neck Neck: Present: supple, normal ROM - Respiratory Respiratory effort: normal Respiratory: bilateral: diminished, negative: rales, rhonchi, wheezing - Cardiovascular Rhythm: regular Heart Sounds: Present: S1 & S2 - Extremities Extremities: no ischemia, No edema - Abdominal General gastrointestinal: soft, non-tender, non-distended, normal bowel sounds - Integumentary Integumentary: Present: clear, warm - Psychiatric Psychiatric: appropriate mood/affect, cooperative - Neurologic Neurologic: other (unsteady gait, dizziness) Results - Labs CBC & Chem 7: 03/14/19 04:52 03/14/19 04:52 Labs: Laboratory Last Values WBC 12.7 K/mm3 (4.5-11.0) H 03/14/19 04:52 RBC 4.88 M/mm3 (3.65-5.03) 03/14/19 04:52 Hgb 16.2 gm/dl (11.8-15.2) H 03/14/19 04:52 Hct 47.6 % (35.5-45.6) H 03/14/19 04:52 MCV 98 fl (84-94) H 03/14/19 04:52 MCH 33 pg (28-32) H 03/14/19 04:52 MCHC 34 % (32-34) 03/14/19 04:52 RDW 14.4 % (13.2-15.2) 03/14/19 04:52 Plt Count 263 K/mm3 (140-440) 03/14/19 04:52 Lymph % (Auto) 20.7 % (13.4-35.0) 03/14/19 04:52 [place] % (Auto) 7.0 % (0.0-7.3) 03/14/19 04:52 Eos % (Auto) 0.6 % (0.0-4.3) 03/14/19 04:52 Baso % (Auto) 0.4 % (0.0-1.8) 03/14/19 04:52 Lymph # 2.6 K/mm3 (1.2-5.4) 03/14/19 04:52 [place] # 0.9 K/mm3 (0.0-0.8) H 03/14/19 04:52 Eos # 0.1 K/mm3 (0.0-0.4) 03/14/19 04:52 Baso # 0.1 K/mm3 (0.0-0.1) 03/14/19 04:52 Seg Neutrophils % 71.3 % (40.0-70.0) H 03/14/19 04:52 Seg Neutrophils # 9.1 K/mm3 (1.8-7.7) H 03/14/19 04:52 POC ABG pH 7.404 (7.35-7.45) 03/13/19 15:21 POC ABG pCO2 37.3 (35-45) 03/13/19 15:21 POC ABG pO2 67 (80-105) L 03/13/19 15:21 POC ABG HCO3 23.3 (22-26 mml/L) 03/13/19 15:21 POC ABG Total CO2 24 (23-27mmol/L) 03/13/19 15:21 POC ABG O2 Sat 93 03/13/19 15:21 POC ABG Base Excess -1 ((-2) - (+3)mmol/L) 03/13/19 15:21 21 % 03/13/19 15:21 Sodium 140 mmol/L (137-145) 03/14/19 04:52 Potassium 3.6 mmol/L (3.6-5.0) D 03/14/19 04:52 Chloride 104.3 mmol/L (98-107) 03/14/19 04:52 Carbon Dioxide 23 mmol/L (22-30) 03/14/19 04:52 16 mmol/L 03/14/19 04:52 BUN 12 mg/dL (9-20) 03/14/19 04:52 0.7 mg/dL (0.8-1.5) L 03/14/19 04:52 Estimated GFR > 60 ml/min 03/14/19 04:52 17 % 03/14/19 04:52 Glucose 164 mg/dL (75-100) H 03/14/19 04:52 POC Glucose 175 (70-105) H 03/14/19 12:51 8.2 % (4-6) H 03/13/19 23:55 Calcium 8.6 mg/dL (8.4-10.2) 03/14/19 04:52 1.00 mg/dL (0.1-1.2) 03/14/19 04:52 AST 17 units/L (5-40) 03/14/19 04:52 ALT 25 units/L (7-56) 03/14/19 04:52 77 units/L (35-129) 03/14/19 04:52 41.0 umol/L (25-60) 03/13/19 10:52 < 0.010 ng/mL (0.00-0.029) 03/13/19 10:52 6.9 g/dL (6.3-8.2) 03/14/19 04:52 4.0 g/dL (3.9-5) 03/14/19 04:52 1.4 % 03/14/19 04:52 TSH 0.441 mlU/mL (0.270-4.200) 03/13/19 10:52 Yellow (Yellow) 03/13/19 13:29 Clear (Clear) 03/13/19 13:29 7.0 (5.0-7.0) 03/13/19 13:29 Ur Specific [place] 1.029 (1.003-1.030) 03/13/19 13:29 <15 mg/dl mg/dL (Negative) 03/13/19 13:29 >=500 mg/dL (Negative) 03/13/19 13:29 20 mg/dL (Negative) 03/13/19 13:29 Neg (Negative) 03/13/19 13:29 Neg (Negative) 03/13/19 13:29 Neg (Negative) 03/13/19 13:29 < 2.0 mg/dL (<2.0) 03/13/19 13:29 Ur Leukocyte Esterase Neg (Negative) 03/13/19 13:29 < 1.0 /HPF (0.0-6.0) 03/13/19 13:29 3.0 /HPF (0.0-6.0) 03/13/19 13:29 U Epithel Cells (Auto) < 1.0 /HPF (0-13.0) 03/13/19 13:29 Few /HPF 03/13/19 13:29 Presumptive negative 03/13/19 13:28 Presumptive negative 03/13/19 13:28 Ur Barbiturates Screen Presumptive negative 03/13/19 13:28 Ur Phencyclidine Scrn Presumptive negative 03/13/19 13:28 Ur Amphetamines Screen Presumptive negative 03/13/19 13:28 U Benzodiazepines Scrn Presumptive negative 03/13/19 13:28 Presumptive negative 03/13/19 13:28 U Marijuana (THC) Screen Presumptive negative 03/13/19 13:28 Disclamer 03/13/19 13:28 Plasma/Serum Alcohol < 0.01 % (0-0.07) 03/13/19 10:52 Active Medications - Current Medications Current Medications: Generic Name Dose Route Start Last Admin Trade Name Freq PRN Reason Stop Dose Admin Acetaminophen 650 mg 03/13/19 23:55 Tylenol PO Q4H PRN Pain MILD(1-3)/Fever >100.5/DOZIER Atorvastatin Calcium 40 mg 03/14/19 22:00 Lipitor PO QHS DEONDRE Dextrose 50 ml 03/13/19 22:25 D50w (25gm) Syringe IV PRN PRN Hypoglycemia Famotidine 20 mg 03/13/19 23:45 03/14/19 12:14 Pepcid IV 20 mg BID DEONDRE Administration Hydromorphone HCl 0.5 mg 03/13/19 23:55 Dilaudid IV Q3H PRN Pain , Severe (7-10) Sodium Chloride 1,000 mls @ 100 mls/hr 03/13/19 23:45 03/14/19 00:44 Nacl 0.9% 1000 Ml IV 100 mls/hr DIRECT DEONDRE Administration Insulin Human Regular 0 units 03/14/19 07:30 03/14/19 13:03 Humulin R SUB-Q 2 units ACHS DEONDRE Administration Protocol Metoclopramide HCl 10 mg 03/13/19 23:55 Reglan IV Q6H PRN Nausea And Vomiting Ondansetron HCl 4 mg 03/13/19 23:55 03/14/19 13:13 Zofran IV 4 mg Q3H PRN Administration Nausea And Vomiting Oxycodone/Acetaminophen 1 tab 03/13/19 23:55 03/14/19 06:08 Percocet 5/325 PO 1 tab Q6H PRN Administration Pain, Moderate (4-6) Sodium Chloride 10 ml 03/14/19 10:00 03/14/19 12:14 Sodium Chloride Flush Syringe 10 Ml IV 10 ml BID DEONDRE Administration Sodium Chloride 10 ml 03/13/19 23:55 Sodium Chloride Flush Syringe 10 Ml IV PRN PRN LINE FLUSH Sodium Chloride 10 ml 03/14/19 01:19 Sodium Chloride Flush Syringe 10 Ml IV PRN PRN LINE FLUSH
[2019-03-14] MEDS ORDERED: ASPIRIN PO ONE (15:58)
--- NOTE | 2019-03-14 17:56 | Consultation ---
History of Present Illness Consult date: 03/14/19 Chief complaint: ataxia History of present illness: This is a 58 YO M who presented with generally not feeling well and ataxia. found to have a right cerebellar stroke with possible vertebral occlusions. Pt feels better now. Not taking aspirin daily at home. Past History Past Medical History: diabetes Past Surgical History: No surgical history Social history: lives with family Family history: hypertension Medications and Allergies Allergies Allergy/AdvReac Type Severity Reaction Status Date / Time coconut oil Allergy Anaphylaxis Verified 08/23/14 13:10 Penicillins Allergy Unknown Verified 03/13/19 11:21 venom-honey bee Allergy Hives Verified 08/23/14 13:10 [bee venom (honey bee)] Home Medications Medication Instructions Recorded Confirmed Last Taken Type No Known Home Medications [No 03/13/19 03/13/19 Unknown History Reported Home Medications] Active Meds: Active Medications Acetaminophen (Tylenol) 650 mg PO Q4H PRN PRN Reason: Pain MILD(1-3)/Fever >100.5/DOZIER Aspirin (Aspirin) 325 mg PO QDAY DEONDRE Atorvastatin Calcium (Lipitor) 40 mg PO QHS DEONDRE Dextrose (D50w (25gm) Syringe) 50 ml IV PRN PRN PRN Reason: Hypoglycemia Famotidine (Pepcid) 20 mg IV BID DEONDRE Last Admin: 03/14/19 12:14 Dose: 20 mg Documented by: Hydromorphone HCl (Dilaudid) 0.5 mg IV Q3H PRN PRN Reason: Pain , Severe (7-10) Sodium Chloride (Nacl 0.9% 1000 Ml) 1,000 mls @ 100 mls/hr IV DIRECT DEONDRE Last Admin: 03/14/19 16:53 Dose: 100 mls/hr Documented by: Insulin Human Regular (Humulin R) 0 units SUB-Q ACHS DEONDRE; Protocol Last Admin: 03/14/19 17:17 Dose: 2 units Documented by: Metoclopramide HCl (Reglan) 10 mg IV Q6H PRN PRN Reason: Nausea And Vomiting Ondansetron HCl (Zofran) 4 mg IV Q3H PRN PRN Reason: Nausea And Vomiting Last Admin: 03/14/19 13:13 Dose: 4 mg Documented by: Oxycodone/Acetaminophen (Percocet 5/325) 1 tab PO Q6H PRN PRN Reason: Pain, Moderate (4-6) Last Admin: 03/14/19 06:08 Dose: 1 tab Documented by: Sodium Chloride (Sodium Chloride Flush Syringe 10 Ml) 10 ml IV BID DEONDRE Last Admin: 03/14/19 12:14 Dose: 10 ml Documented by: Sodium Chloride (Sodium Chloride Flush Syringe 10 Ml) 10 ml IV PRN PRN PRN Reason: LINE FLUSH Sodium Chloride (Sodium Chloride Flush Syringe 10 Ml) 10 ml IV PRN PRN PRN Reason: LINE FLUSH Review of Systems Neurological: ataxia Physical Examination - Vital Signs Vital Signs: Vital Signs Temp Pulse Resp BP Pulse Ox 98.4 F 67 18 158/67 93 03/13/19 10:12 03/13/19 10:12 03/13/19 10:12 03/13/19 10:12 03/13/19 10:12 - Constitutional General appearance: comfortable - EENT EENT: Present: PERRL, mucous membranes moist - Respiratory Respiratory: Present: lungs clear - Cardiovascular Cardiovascular: Present: regular rate - Gastrointestinal Gastrointestinal: Present: normoactive bowel sounds - Integumentary Integumentary: Present: normal - Neurologic Cranial nerve examination: PERRL, EOMI, face symmetric, tongue midline Sensorimotor examination: intact Motor examination - right side: 5/5: biceps, triceps, wrist flexion, wrist extension, spring repairer helper hand, hip flexors, knee extensors, dorsiflexion, toe extension (EHL), plantarflexion Motor examination - left side: 5/5: biceps, triceps, wrist flexion, wrist extension, spring repairer helper hand, hip flexors, knee extensors, dorsiflexion, toe extension (EHL), plantarflexion Reflexes: 1+: ankle, bicep, knee, tricep Cerebellar examination: other (no dysmetria noted) - Psychiatric Psychiatric: Present: mood/affect appropriate Results - Laboratory Findings CBC and BMP: 03/14/19 04:52 03/14/19 04:52 Abnormal Lab Findings: Abnormal Labs 03/13/19 03/13/19 03/13/19 10:52 10:52 15:21 WBC 11.1 H Hgb 16.6 H Hct 47.7 H MCV 97 H MCH 34 H MCHC 35 H Lymph % (Auto) 12.[address] [place] # Seg Neutrophils % 84.6 H Seg Neutrophils # 9.4 H POC ABG pO2 67 L Potassium 5.1 H Creatinine Glucose 286 H POC Glucose Hemoglobin A1c 03/13/19 03/13/19 03/14/19 21:18 23:55 04:52 WBC 12.7 H Hgb 16.2 H Hct 47.6 H MCV 98 H MCH 33 H MCHC Lymph % (Auto) [place] # 0.9 H Seg Neutrophils % 71.3 H Seg Neutrophils # 9.1 H POC ABG pO2 Potassium Creatinine Glucose POC Glucose 187 H Hemoglobin A1c 8.2 H 03/14/19 03/14/19 03/14/19 04:52 08:08 12:51 WBC Hgb Hct MCV MCH MCHC Lymph % (Auto) [place] # Seg Neutrophils % Seg Neutrophils # POC ABG pO2 Potassium Creatinine 0.7 L Glucose 164 H POC Glucose 183 H 175 H Hemoglobin A1c 03/14/19 16:51 WBC Hgb Hct MCV MCH MCHC Lymph % (Auto) [place] # Seg Neutrophils % Seg Neutrophils # POC ABG pO2 Potassium Creatinine Glucose POC Glucose 151 H Hemoglobin A1c - Diagnostic Findings Additional findings: MRI Brain- right cerebellar stroke MRA- decreased vertebral flow Assessment and Plan This is a 58 YO M with right cerebellar stroke and vertebral decreased flow. REcommend 81 mg aspirin, plavix and statin. VTE prophylaxis PT/OT/St carotids ok, echo pending A1C elevated, will need DM education, LDL pending Continue care for all medical issues as you are doing
[2019-03-15 06:09] LABS: Chol/HDL Ratio 6.4 %
[2019-03-15] MEDS: DILAUDID IV PRN (08:38)
[2019-03-15] MEDS: HumuLIN R SUB-Q SCH ×4 (08:42→21:45)
--- NOTE | 2019-03-15 09:24 | Progress Note ---
Assessment and Plan Assessment and plan: --Acute Cerebellar infarct: Not a candidate for TPA Aspirin and statin, fall precautions Physical therapy occupational therapy, rehabilitation --Ataxia/unsteady gait Secondary to acute cerebellar infarct Fall precautions, physical therapy occupational therapy, supportive care Workup so far: CT head without contrast; no acute abnormality noted CTA head; no hemodynamically significant stenosis large vessel occlusion or aneurysm CTA neck; no hemodynamically significant stenosis MRI brain: Acute infarct involving the superior right cerebellum MRA Brain: Absence of significant proximal intracranial segments of the vertebral arteries indicative of occlusion of the bases mild to moderate narrowing of the basilar artery distally. Carotid Doppler; no hemodynamically significant stenosis Echocardiogram; pending --DVT prophylaxis; Lovenox --Type 2 diabetes mellitus; Accu-Chek sliding scale coverage and ADA diet Insulin as needed, A1c 8.2 Follow neurology evaluation and recommendations Monitor closely and adjust management as needed DC planning per case management; possible home with home health versus subacute as needed History Interval history: Patient seen and examined medical records event Patient continues to have an significant Secondary to acute blood infarction Patient is comfortable Vital signs reviewed Hospitalist Physical - Constitutional Vitals: Temp Pulse Resp BP Pulse Ox 98.1 F 44 L 20 154/75 97 03/15/19 04:05 03/15/19 04:05 03/15/19 04:05 03/15/19 04:05 03/15/19 04:05 General appearance: Present: no acute distress, well-nourished - EENT Eyes: Present: PERRL, EOM intact - Neck Neck: Present: supple, normal ROM - Respiratory Respiratory effort: normal Respiratory: bilateral: diminished, negative: rales, rhonchi, wheezing - Cardiovascular Rhythm: regular Heart Sounds: Present: S1 & S2 - Extremities Extremities: no ischemia, No edema - Abdominal General gastrointestinal: soft, non-tender, non-distended, normal bowel sounds - Integumentary Integumentary: Present: clear, warm - Psychiatric Psychiatric: appropriate mood/affect, cooperative - Neurologic Neurologic: other (vertigo and dizziness and unsteady gait) Results - Labs CBC & Chem 7: 03/14/19 04:52 03/14/19 04:52 Labs: Laboratory Last Values WBC 12.7 K/mm3 (4.5-11.0) H 03/14/19 04:52 RBC 4.88 M/mm3 (3.65-5.03) 03/14/19 04:52 Hgb 16.2 gm/dl (11.8-15.2) H 03/14/19 04:52 Hct 47.6 % (35.5-45.6) H 03/14/19 04:52 MCV 98 fl (84-94) H 03/14/19 04:52 MCH 33 pg (28-32) H 03/14/19 04:52 MCHC 34 % (32-34) 03/14/19 04:52 RDW 14.4 % (13.2-15.2) 03/14/19 04:52 Plt Count 263 K/mm3 (140-440) 03/14/19 04:52 Lymph % (Auto) 20.7 % (13.4-35.0) 03/14/19 04:52 [place] % (Auto) 7.0 % (0.0-7.3) 03/14/19 04:52 Eos % (Auto) 0.6 % (0.0-4.3) 03/14/19 04:52 Baso % (Auto) 0.4 % (0.0-1.8) 03/14/19 04:52 Lymph # 2.6 K/mm3 (1.2-5.4) 03/14/19 04:52 [place] # 0.9 K/mm3 (0.0-0.8) H 03/14/19 04:52 Eos # 0.1 K/mm3 (0.0-0.4) 03/14/19 04:52 Baso # 0.1 K/mm3 (0.0-0.1) 03/14/19 04:52 Seg Neutrophils % 71.3 % (40.0-70.0) H 03/14/19 04:52 Seg Neutrophils # 9.1 K/mm3 (1.8-7.7) H 03/14/19 04:52 POC ABG pH 7.404 (7.35-7.45) 03/13/19 15:21 POC ABG pCO2 37.3 (35-45) 03/13/19 15:21 POC ABG pO2 67 (80-105) L 03/13/19 15:21 POC ABG HCO3 23.3 (22-26 mml/L) 03/13/19 15:21 POC ABG Total CO2 24 (23-27mmol/L) 03/13/19 15:21 POC ABG O2 Sat 93 03/13/19 15:21 POC ABG Base Excess -1 ((-2) - (+3)mmol/L) 03/13/19 15:21 21 % 03/13/19 15:21 Sodium 140 mmol/L (137-145) 03/14/19 04:52 Potassium 3.6 mmol/L (3.6-5.0) D 03/14/19 04:52 Chloride 104.3 mmol/L (98-107) 03/14/19 04:52 Carbon Dioxide 23 mmol/L (22-30) 03/14/19 04:52 16 mmol/L 03/14/19 04:52 BUN 12 mg/dL (9-20) 03/14/19 04:52 0.7 mg/dL (0.8-1.5) L 03/14/19 04:52 Estimated GFR > 60 ml/min 03/14/19 04:52 17 % 03/14/19 04:52 Glucose 164 mg/dL (75-100) H 03/14/19 04:52 POC Glucose 141 (70-105) H 03/15/19 08:35 8.2 % (4-6) H 03/13/19 23:55 Calcium 8.6 mg/dL (8.4-10.2) 03/14/19 04:52 1.00 mg/dL (0.1-1.2) 03/14/19 04:52 AST 17 units/L (5-40) 03/14/19 04:52 ALT 25 units/L (7-56) 03/14/19 04:52 77 units/L (35-129) 03/14/19 04:52 41.0 umol/L (25-60) 03/13/19 10:52 < 0.010 ng/mL (0.00-0.029) 03/13/19 10:52 6.9 g/dL (6.3-8.2) 03/14/19 04:52 4.0 g/dL (3.9-5) 03/14/19 04:52 1.4 % 03/14/19 04:52 Triglycerides 231 mg/dL (2-149) H 03/15/19 04:08 Cholesterol 173 mg/dL (50-199) 03/15/19 04:08 121 mg/dL (50-130) 03/15/19 04:08 27 mg/dL (40-59) L 03/15/19 04:08 6.40 % 03/15/19 04:08 TSH 0.441 mlU/mL (0.270-4.200) 03/13/19 10:52 Yellow (Yellow) 03/13/19 13:29 Clear (Clear) 03/13/19 13:29 7.0 (5.0-7.0) 03/13/19 13:29 Ur Specific [place] 1.029 (1.003-1.030) 03/13/19 13:29 <15 mg/dl mg/dL (Negative) 03/13/19 13:29 >=500 mg/dL (Negative) 03/13/19 13:29 20 mg/dL (Negative) 03/13/19 13:29 Neg (Negative) 03/13/19 13:29 Neg (Negative) 03/13/19 13:29 Neg (Negative) 03/13/19 13:29 < 2.0 mg/dL (<2.0) 03/13/19 13:29 Ur Leukocyte Esterase Neg (Negative) 03/13/19 13:29 < 1.0 /HPF (0.0-6.0) 03/13/19 13:29 3.0 /HPF (0.0-6.0) 03/13/19 13:29 U Epithel Cells (Auto) < 1.0 /HPF (0-13.0) 03/13/19 13:29 Few /HPF 03/13/19 13:29 Presumptive negative 03/13/19 13:28 Presumptive negative 03/13/19 13:28 Ur Barbiturates Screen Presumptive negative 03/13/19 13:28 Ur Phencyclidine Scrn Presumptive negative 03/13/19 13:28 Ur Amphetamines Screen Presumptive negative 03/13/19 13:28 U Benzodiazepines Scrn Presumptive negative 03/13/19 13:28 Presumptive negative 03/13/19 13:28 U Marijuana (THC) Screen Presumptive negative 03/13/19 13:28 Disclamer 03/13/19 13:28 Plasma/Serum Alcohol < 0.01 % (0-0.07) 03/13/19 10:52 Active Medications - Current Medications Current Medications: Generic Name Dose Route Start Last Admin Trade Name Freq PRN Reason Stop Dose Admin Acetaminophen 650 mg 03/13/19 23:55 Tylenol PO Q4H PRN Pain MILD(1-3)/Fever >100.5/DOZIER Aspirin 81 mg 03/15/19 10:00 Baby Aspirin PO QDAY DEONDRE Atorvastatin Calcium 40 mg 03/14/19 22:00 03/14/19 21:35 Lipitor PO 40 mg QHS DEONDRE Administration Clopidogrel Bisulfate 75 mg 03/15/19 10:00 Plavix PO QDAY [facility] Dextrose 50 ml 03/13/19 22:25 D50w (25gm) Syringe IV PRN PRN Hypoglycemia Famotidine 20 mg 03/15/19 10:00 Pepcid PO BID DEONDRE Hydromorphone HCl 0.5 mg 03/13/19 23:55 03/15/19 08:38 Dilaudid IV 0.5 mg Q3H PRN Administration Pain , Severe (7-10) Sodium Chloride 1,000 mls @ 100 mls/hr 03/13/19 23:45 03/14/19 16:53 Nacl 0.9% 1000 Ml IV 100 mls/hr DIRECT [facility] Administration Insulin Human Regular 0 units 03/14/19 07:30 03/15/19 08:42 Humulin R SUB-Q Not Given ACHS [facility] Protocol Metoclopramide HCl 10 mg 03/13/19 23:55 Reglan IV Q6H PRN Nausea And Vomiting Ondansetron HCl 4 mg 03/13/19 23:55 03/14/19 13:13 Zofran IV 4 mg Q3H PRN Administration Nausea And Vomiting Oxycodone/Acetaminophen 1 tab 03/13/19 23:55 03/14/19 06:08 Percocet 5/325 PO 1 tab Q6H PRN Administration Pain, Moderate (4-6) Sodium Chloride 10 ml 03/14/19 10:00 03/14/19 21:35 Sodium Chloride Flush Syringe 10 Ml IV 10 ml BID DEONDRE Administration Sodium Chloride 10 ml 03/13/19 23:55 Sodium Chloride Flush Syringe 10 Ml IV PRN PRN LINE FLUSH
[2019-03-15] MEDS: PEPCID IV SCH (09:28)
[2019-03-15] MEDS: PLAVIX PO SCH (09:28)
[2019-03-15] MEDS: BABY ASPIRIN PO SCH (09:28)
[2019-03-15] MEDS: PEPCID PO SCH ×2 (09:32→21:45)
[2019-03-15] MEDS: SODIUM CHLORIDE FLUSH SYRINGE 10 ML IV SCH ×2 (09:32→22:03)
[2019-03-15] MEDS ORDERED: ASPIRIN PO SCH (10:00)
[2019-03-15] MEDS: NACL 0.9% 1000 ML 1,000 ML IV SCH (15:57)
[2019-03-16] MEDS: DILAUDID IV PRN ×2 (00:34→03:48)
[2019-03-16] MEDS: NACL 0.9% 1000 ML 1,000 ML IV SCH ×2 (03:48→13:32)
[2019-03-16] MEDS: HumuLIN R SUB-Q SCH ×4 (08:26→22:51)
[2019-03-16] MEDS: BABY ASPIRIN PO SCH (09:28)
[2019-03-16] MEDS: PLAVIX PO SCH (09:28)
[2019-03-16] MEDS: PEPCID PO SCH ×2 (09:28→22:50)
[2019-03-16] MEDS: SODIUM CHLORIDE FLUSH SYRINGE 10 ML IV SCH ×2 (12:20→22:51)
--- NOTE | 2019-03-16 18:31 | Progress Note ---
Assessment and Plan Assessment and plan: --Ataxia/unsteady gait Secondary to acute cerebellar infarct Fall precautions, physical therapy occupational therapy, supportive care --Acute Cerebellar infarct: Not a candidate for TPA Aspirin and statin, fall precautions Physical therapy occupational therapy, rehabilitation Workup so far: CT head without contrast; no acute abnormality noted CTA head; no hemodynamically significant stenosis large vessel occlusion or aneurysm CTA neck; no hemodynamically significant stenosis MRI brain: Acute infarct involving the superior right cerebellum MRA Brain: Absence of significant proximal intracranial segments of the vertebral arteries indicative of occlusion of the bases mild to moderate narrowing of the basilar artery distally. Carotid Doppler; no hemodynamically significant stenosis Echocardiogram;EF 55-60% --Type 2 diabetes mellitus; Accu-Chek sliding scale coverage and ADA diet Insulin as needed, A1c 8.2 --DVT prophylaxis; Lovenox Follow neurology evaluation and recommendations Monitor closely and adjust management as needed DC planning per case management; possible home with home health versus subacute as needed Physical therapy and occupational therapy is working with the patient Further recommendations History Interval history: Patient seen and examined medical records reviewed Patient has severe dizziness and unsteady gait Reports that sometimes he is not even able to sit in the bed Acute cerebrovascular infarction Alert awake oriented In mild distress and is anxious Vital signs reviewed Hospitalist Physical - Constitutional Vitals: Temp Pulse Resp BP Pulse Ox 98.4 F 55 L 19 138/69 97 03/16/19 00:06 03/16/19 10:00 03/16/19 10:00 03/16/19 00:06 03/16/19 10:00 General appearance: Present: no acute distress, well-nourished - EENT Eyes: Present: PERRL, EOM intact - Neck Neck: Present: supple, normal ROM - Respiratory Respiratory effort: normal Respiratory: bilateral: diminished, negative: rales, rhonchi, wheezing - Cardiovascular Rhythm: regular Heart Sounds: Present: S1 & S2 - Extremities Extremities: no ischemia, No edema - Abdominal General gastrointestinal: soft, non-tender, non-distended, normal bowel sounds - Integumentary Integumentary: Present: clear, warm - Psychiatric Psychiatric: appropriate mood/affect, cooperative - Neurologic Neurologic: other (severe dizziness and ataxia, unsteady gait, unable to actively participate in PT) Results - Labs CBC & Chem 7: 03/14/19 04:52 03/14/19 04:52 Labs: Laboratory Last Values WBC 12.7 K/mm3 (4.5-11.0) H 03/14/19 04:52 RBC 4.88 M/mm3 (3.65-5.03) 03/14/19 04:52 Hgb 16.2 gm/dl (11.8-15.2) H 03/14/19 04:52 Hct 47.6 % (35.5-45.6) H 03/14/19 04:52 MCV 98 fl (84-94) H 03/14/19 04:52 MCH 33 pg (28-32) H 03/14/19 04:52 MCHC 34 % (32-34) 03/14/19 04:52 RDW 14.4 % (13.2-15.2) 03/14/19 04:52 Plt Count 263 K/mm3 (140-440) 03/14/19 04:52 Lymph % (Auto) 20.7 % (13.4-35.0) 03/14/19 04:52 [place] % (Auto) 7.0 % (0.0-7.3) 03/14/19 04:52 Eos % (Auto) 0.6 % (0.0-4.3) 03/14/19 04:52 Baso % (Auto) 0.4 % (0.0-1.8) 03/14/19 04:52 Lymph # 2.6 K/mm3 (1.2-5.4) 03/14/19 04:52 [place] # 0.9 K/mm3 (0.0-0.8) H 03/14/19 04:52 Eos # 0.1 K/mm3 (0.0-0.4) 03/14/19 04:52 Baso # 0.1 K/mm3 (0.0-0.1) 03/14/19 04:52 Seg Neutrophils % 71.3 % (40.0-70.0) H 03/14/19 04:52 Seg Neutrophils # 9.1 K/mm3 (1.8-7.7) H 03/14/19 04:52 POC ABG pH 7.404 (7.35-7.45) 03/13/19 15:21 POC ABG pCO2 37.3 (35-45) 03/13/19 15:21 POC ABG pO2 67 (80-105) L 03/13/19 15:21 POC ABG HCO3 23.3 (22-26 mml/L) 03/13/19 15:21 POC ABG Total CO2 24 (23-27mmol/L) 03/13/19 15:21 POC ABG O2 Sat 93 03/13/19 15:21 POC ABG Base Excess -1 ((-2) - (+3)mmol/L) 03/13/19 15:21 21 % 03/13/19 15:21 Sodium 140 mmol/L (137-145) 03/14/19 04:52 Potassium 3.6 mmol/L (3.6-5.0) D 03/14/19 04:52 Chloride 104.3 mmol/L (98-107) 03/14/19 04:52 Carbon Dioxide 23 mmol/L (22-30) 03/14/19 04:52 16 mmol/L 03/14/19 04:52 BUN 12 mg/dL (9-20) 03/14/19 04:52 0.7 mg/dL (0.8-1.5) L 03/14/19 04:52 Estimated GFR > 60 ml/min 03/14/19 04:52 17 % 03/14/19 04:52 Glucose 164 mg/dL (75-100) H 03/14/19 04:52 POC Glucose 173 (70-105) H 03/16/19 17:51 8.2 % (4-6) H 03/13/19 23:55 Calcium 8.6 mg/dL (8.4-10.2) 03/14/19 04:52 1.00 mg/dL (0.1-1.2) 03/14/19 04:52 AST 17 units/L (5-40) 03/14/19 04:52 ALT 25 units/L (7-56) 03/14/19 04:52 77 units/L (35-129) 03/14/19 04:52 41.0 umol/L (25-60) 03/13/19 10:52 < 0.010 ng/mL (0.00-0.029) 03/13/19 10:52 6.9 g/dL (6.3-8.2) 03/14/19 04:52 4.0 g/dL (3.9-5) 03/14/19 04:52 1.4 % 03/14/19 04:52 Triglycerides 231 mg/dL (2-149) H 03/15/19 04:08 Cholesterol 173 mg/dL (50-199) 03/15/19 04:08 121 mg/dL (50-130) 03/15/19 04:08 27 mg/dL (40-59) L 03/15/19 04:08 6.40 % 03/15/19 04:08 TSH 0.441 mlU/mL (0.270-4.200) 03/13/19 10:52 Yellow (Yellow) 03/13/19 13:29 Clear (Clear) 03/13/19 13:29 7.0 (5.0-7.0) 03/13/19 13:29 Ur Specific [place] 1.029 (1.003-1.030) 03/13/19 13:29 <15 mg/dl mg/dL (Negative) 03/13/19 13:29 >=500 mg/dL (Negative) 03/13/19 13:29 20 mg/dL (Negative) 03/13/19 13:29 Neg (Negative) 03/13/19 13:29 Neg (Negative) 03/13/19 13:29 Neg (Negative) 03/13/19 13:29 < 2.0 mg/dL (<2.0) 03/13/19 13:29 Ur Leukocyte Esterase Neg (Negative) 03/13/19 13:29 < 1.0 /HPF (0.0-6.0) 03/13/19 13:29 3.0 /HPF (0.0-6.0) 03/13/19 13:29 U Epithel Cells (Auto) < 1.0 /HPF (0-13.0) 03/13/19 13:29 Few /HPF 03/13/19 13:29 Presumptive negative 03/13/19 13:28 Presumptive negative 03/13/19 13:28 Ur Barbiturates Screen Presumptive negative 03/13/19 13:28 Ur Phencyclidine Scrn Presumptive negative 03/13/19 13:28 Ur Amphetamines Screen Presumptive negative 03/13/19 13:28 U Benzodiazepines Scrn Presumptive negative 03/13/19 13:28 Presumptive negative 03/13/19 13:28 U Marijuana (THC) Screen Presumptive negative 03/13/19 13:28 Disclamer 03/13/19 13:28 Plasma/Serum Alcohol < 0.01 % (0-0.07) 03/13/19 10:52 Active Medications - Current Medications Current Medications: Generic Name Dose Route Start Last Admin Trade Name Freq PRN Reason Stop Dose Admin Acetaminophen 650 mg 03/13/19 23:55 Tylenol PO Q4H PRN Pain MILD(1-3)/Fever >100.5/DOZIER Aspirin 81 mg 03/15/19 10:00 03/16/19 09:28 Baby Aspirin PO 81 mg QDAY DEONDRE Administration Atorvastatin Calcium 40 mg 03/14/19 22:00 03/15/19 21:45 Lipitor PO 40 mg QHS DEONDRE Administration Clopidogrel Bisulfate 75 mg 03/15/19 10:00 03/16/19 09:28 Plavix PO 75 mg QDAY [facility] Administration Dextrose 50 ml 03/13/19 22:25 D50w (25gm) Syringe IV PRN PRN Hypoglycemia Famotidine 20 mg 03/15/19 10:00 03/16/19 09:28 Pepcid PO 20 mg BID DEONDRE Administration Hydromorphone HCl 0.5 mg 03/13/19 23:55 03/16/19 03:48 Dilaudid IV 0.5 mg Q3H PRN Administration Pain , Severe (7-10) Sodium Chloride 1,000 mls @ 100 mls/hr 03/13/19 23:45 03/16/19 13:32 Nacl 0.9% 1000 Ml IV 100 mls/hr DIRECT DEONDRE Administration Insulin Human Regular 0 units 03/14/19 07:30 03/16/19 18:08 Humulin R SUB-Q 2 units ACHS DE[facility]RE Administration Protocol Metoclopramide HCl 10 mg 03/13/19 23:55 Reglan IV Q6H PRN Nausea And Vomiting Ondansetron HCl 4 mg 03/13/19 23:55 03/14/19 13:13 Zofran IV 4 mg Q3H PRN Administration Nausea And Vomiting Oxycodone/Acetaminophen 1 tab 03/13/19 23:55 03/14/19 06:08 Percocet 5/325 PO 1 tab Q6H PRN Administration Pain, Moderate (4-6) Sodium Chloride 10 ml 03/14/19 10:00 07/19/19 12:20 Sodium Chloride Flush Syringe 10 Ml IV 10 ml BID DEONDRE Administration Sodium Chloride 10 ml 03/13/19 23:55 Sodium Chloride Flush Syringe 10 Ml IV PRN PRN LINE FLUSH
[2019-03-17] MEDS: HumuLIN R SUB-Q SCH ×4 (07:30→22:34)
[2019-03-17] MEDS ORDERED: ATROPINE IV PRN (08:17)
[2019-03-17] MEDS ORDERED: ATROPINE 0.1% (CARDIAC) IV PRN (08:27)
--- NOTE | 2019-03-17 09:23 | Progress Note ---
Assessment and Plan Assessment and plan: --Asymptomatic bradycardia; Heart rate ranges between 30s and 40s Patient is not on any blood beta blockers Cardiology consult --Ataxia/unsteady gait Secondary to acute cerebellar infarct Fall precautions, PT,OT --Acute Cerebellar infarct: Not a candidate for TPA Aspirin and statin, fall precautions Physical therapy occupational therapy, rehabilitation Workup so far: CT head without contrast; no acute abnormality noted CTA head; no hemodynamically significant stenosis large vessel occlusion or aneurysm CTA neck; no hemodynamically significant stenosis MRI brain: Acute infarct involving the superior right cerebellum MRA Brain: Absence of significant proximal intracranial segments of the vertebral arteries indicative of occlusion of the bases mild to moderate narrowing of the basilar artery distally. Carotid Doppler; no hemodynamically significant stenosis Echocardiogram;EF 55-60% --Type 2 diabetes mellitus; Accu-Chek sliding scale coverage and ADA diet Insulin as needed, A1c 8.2 --DVT prophylaxis; Lovenox Follow neurology evaluation and recommendations Monitor closely and adjust management as needed DC planning per case management; patient needs skilled PT and OT possible home with home health versus subacute rehabilitation History Interval history: Patient seen and examined medical records Reports that patient had episodes of severe bradycardia with heart rate in 30s and 40s this morning Patient has no symptoms of dizziness, chest pain or diaphoresis Vital signs reviewed Hospitalist Physical - Constitutional Vitals: Temp Pulse Resp BP Pulse Ox 97.5 F L 50 L 16 140/67 98 03/17/19 08:14 03/17/19 08:14 03/17/19 08:14 03/17/19 08:14 03/17/19 08:14 General appearance: Present: no acute distress, well-nourished - EENT Eyes: Present: PERRL, EOM intact - Neck Neck: Present: supple, normal ROM - Respiratory Respiratory effort: normal Respiratory: bilateral: diminished, negative: rales, rhonchi, wheezing - Cardiovascular Rhythm: regular Heart Sounds: Present: S1 & S2 (bradycardia) - Extremities Extremities: no ischemia, No edema - Abdominal General gastrointestinal: soft, non-tender, non-distended, normal bowel sounds - Integumentary Integumentary: Present: clear, warm - Psychiatric Psychiatric: appropriate mood/affect, cooperative - Neurologic Neurologic: other (acute cerebellar stroke, residual weakness, unsteady gait and ataxia) Results - Labs CBC & Chem 7: 03/14/19 04:52 03/14/19 04:52 Labs: Laboratory Last Values WBC 12.7 K/mm3 (4.5-11.0) H 03/14/19 04:52 RBC 4.88 M/mm3 (3.65-5.03) 03/14/19 04:52 Hgb 16.2 gm/dl (11.8-15.2) H 03/14/19 04:52 Hct 47.6 % (35.5-45.6) H 03/14/19 04:52 MCV 98 fl (84-94) H 03/14/19 04:52 MCH 33 pg (28-32) H 03/14/19 04:52 MCHC 34 % (32-34) 03/14/19 04:52 RDW 14.4 % (13.2-15.2) 03/14/19 04:52 Plt Count 263 K/mm3 (140-440) 03/14/19 04:52 Lymph % (Auto) 20.7 % (13.4-35.0) 03/14/19 04:52 [place] % (Auto) 7.0 % (0.0-7.3) 03/14/19 04:52 Eos % (Auto) 0.6 % (0.0-4.3) 03/14/19 04:52 Baso % (Auto) 0.4 % (0.0-1.8) 03/14/19 04:52 Lymph # 2.6 K/mm3 (1.2-5.4) 03/14/19 04:52 [place] # 0.9 K/mm3 (0.0-0.8) H 03/14/19 04:52 Eos # 0.1 K/mm3 (0.0-0.4) 03/14/19 04:52 Baso # 0.1 K/mm3 (0.0-0.1) 03/14/19 04:52 Seg Neutrophils % 71.3 % (40.0-70.0) H 03/14/19 04:52 Seg Neutrophils # 9.1 K/mm3 (1.8-7.7) H 03/14/19 04:52 POC ABG pH 7.404 (7.35-7.45) 03/13/19 15:21 POC ABG pCO2 37.3 (35-45) 03/13/19 15:21 POC ABG pO2 67 (80-105) L 03/13/19 15:21 POC ABG HCO3 23.3 (22-26 mml/L) 03/13/19 15:21 POC ABG Total CO2 24 (23-27mmol/L) 03/13/19 15:21 POC ABG O2 Sat 93 03/13/19 15:21 POC ABG Base Excess -1 ((-2) - (+3)mmol/L) 03/13/19 15:21 21 % 03/13/19 15:21 Sodium 140 mmol/L (137-145) 03/14/19 04:52 Potassium 3.6 mmol/L (3.6-5.0) D 03/14/19 04:52 Chloride 104.3 mmol/L (98-107) 03/14/19 04:52 Carbon Dioxide 23 mmol/L (22-30) 03/14/19 04:52 16 mmol/L 03/14/19 04:52 BUN 12 mg/dL (9-20) 03/14/19 04:52 0.7 mg/dL (0.8-1.5) L 03/14/19 04:52 Estimated GFR > 60 ml/min 03/14/19 04:52 17 % 03/14/19 04:52 Glucose 164 mg/dL (75-100) H 03/14/19 04:52 POC Glucose 150 (70-105) H 03/17/19 08:19 8.2 % (4-6) H 03/13/19 23:55 Calcium 8.6 mg/dL (8.4-10.2) 03/14/19 04:52 1.00 mg/dL (0.1-1.2) 03/14/19 04:52 AST 17 units/L (5-40) 03/14/19 04:52 ALT 25 units/L (7-56) 03/14/19 04:52 77 units/L (35-129) 03/14/19 04:52 41.0 umol/L (25-60) 03/13/19 10:52 < 0.010 ng/mL (0.00-0.029) 03/13/19 10:52 6.9 g/dL (6.3-8.2) 03/14/19 04:52 4.0 g/dL (3.9-5) 03/14/19 04:52 1.4 % 03/14/19 04:52 Triglycerides 231 mg/dL (2-149) H 03/15/19 04:08 Cholesterol 173 mg/dL (50-199) 03/15/19 04:08 121 mg/dL (50-130) 03/15/19 04:08 27 mg/dL (40-59) L 03/15/19 04:08 6.40 % 03/15/19 04:08 TSH 0.441 mlU/mL (0.270-4.200) 03/13/19 10:52 Yellow (Yellow) 03/13/19 13:29 Clear (Clear) 03/13/19 13:29 7.0 (5.0-7.0) 03/13/19 13:29 Ur Specific [place] 1.029 (1.003-1.030) 03/13/19 13:29 <15 mg/dl mg/dL (Negative) 03/13/19 13:29 >=500 mg/dL (Negative) 03/13/19 13:29 20 mg/dL (Negative) 03/13/19 13:29 Neg (Negative) 03/13/19 13:29 Neg (Negative) 03/13/19 13:29 Neg (Negative) 03/13/19 13:29 < 2.0 mg/dL (<2.0) 03/13/19 13:29 Ur Leukocyte Esterase Neg (Negative) 03/13/19 13:29 < 1.0 /HPF (0.0-6.0) 03/13/19 13:29 3.0 /HPF (0.0-6.0) 03/13/19 13:29 U Epithel Cells (Auto) < 1.0 /HPF (0-13.0) 03/13/19 13:29 Few /HPF 03/13/19 13:29 Presumptive negative 03/13/19 13:28 Presumptive negative 03/13/19 13:28 Ur Barbiturates Screen Presumptive negative 03/13/19 13:28 Ur Phencyclidine Scrn Presumptive negative 03/13/19 13:28 Ur Amphetamines Screen Presumptive negative 03/13/19 13:28 U Benzodiazepines Scrn Presumptive negative 03/13/19 13:28 Presumptive negative 03/13/19 13:28 U Marijuana (THC) Screen Presumptive negative 03/13/19 13:28 Disclamer 03/13/19 13:28 Plasma/Serum Alcohol < 0.01 % (0-0.07) 03/13/19 10:52 Active Medications - Current Medications Current Medications: Generic Name Dose Route Start Last Admin Trade Name Freq PRN Reason Stop Dose Admin Acetaminophen 650 mg 03/13/19 23:55 Tylenol PO Q4H PRN Pain MILD(1-3)/Fever >100.5/DOZIER Aspirin 81 mg 03/15/19 10:00 03/16/19 09:28 Baby Aspirin PO 81 mg QDAY DEONDRE Administration Atorvastatin Calcium 40 mg 03/14/19 22:00 03/16/19 22:50 Lipitor PO 40 mg QHS DEONDRE Administration Atropine Sulfate 1 mg 03/17/19 08:27 Atropine 0.1% (Cardiac) IV ONCE PRN Bradycardia Clopidogrel Bisulfate 75 mg 03/15/19 10:00 03/16/19 09:28 Plavix PO 75 mg QDAY [facility]ONDRE Administration Dextrose 50 ml 03/13/19 22:25 D50w (25gm) Syringe IV PRN PRN Hypoglycemia Famotidine 20 mg 03/15/19 10:00 03/16/19 22:50 Pepcid PO 20 mg BID DEONDRE Administration Hydromorphone HCl 0.5 mg 03/13/19 23:55 03/16/19 03:48 Dilaudid IV 0.5 mg Q3H PRN Administration Pain , Severe (7-10) Sodium Chloride 1,000 mls @ 100 mls/hr 03/13/19 23:45 03/16/19 13:32 Nacl 0.9% 1000 Ml IV 100 mls/hr DIRECT DEONDRE Administration Insulin Human Regular 0 units 03/14/19 07:30 03/17/19 07:30 Humulin R SUB-Q Not Given [facility] Protocol Metoclopramide HCl 10 mg 03/13/19 23:55 Reglan IV Q6H PRN Nausea And Vomiting Ondansetron HCl 4 mg 03/13/19 23:55 03/14/19 13:13 Zofran IV 4 mg Q3H PRN Administration Nausea And Vomiting Oxycodone/Acetaminophen 1 tab 03/13/19 23:55 07/17/19 06:08 Percocet 5/325 PO 1 tab Q6H PRN Administration Pain, Moderate (4-6) Sodium Chloride 10 ml 03/14/19 10:00 03/16/19 22:51 Sodium Chloride Flush Syringe 10 Ml IV 10 ml BID DEONDRE Administration Sodium Chloride 10 ml 03/13/19 23:55 Sodium Chloride Flush Syringe 10 Ml IV PRN PRN LINE FLUSH
[2019-03-17] MEDS: PLAVIX PO SCH (09:38)
[2019-03-17] MEDS: SODIUM CHLORIDE FLUSH SYRINGE 10 ML IV SCH ×2 (09:38→22:37)
[2019-03-17] MEDS: BABY ASPIRIN PO SCH (09:38)
[2019-03-17] MEDS: PEPCID PO SCH ×2 (09:38→22:36)
--- NOTE | 2019-03-17 13:15 | Consultation ---
History of Present Illness Consult date: 03/17/19 Requesting physician: HARLEY SINGH Consult reason: bradycardia History of present illness: The patient presented initially with generalized weakness and ataxia. 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 Carotid duplex is unremarkable. Echocardiogram revealed an ejection fraction of 50-60% with no evidence of interatrial shunt on contrast study. Over the past few days, on the monitor, he has demonstrated marked sinus bradycardia intermittently. This is regardless of the time of day. His heart rate ranges from the mid 30s to 40s and sometimes goes up to 50s and 60s. He is asymptomatic for this. He mentioned that he was diagnosed with HTN and DM years ago, but could not afford the medications. No h/o RENITA. TSH is NL. Past History Past Medical History: diabetes, hypertension, hyperlipidemia Past Surgical History: total knee replacement (R knee) Social history: smoking. denies: alcohol abuse Family history: denies: CAD Medications and Allergies Allergies Allergy/AdvReac Type Severity Reaction Status Date / Time coconut oil Allergy Anaphylaxis Verified 08/23/14 13:10 Penicillins Allergy Unknown Verified 03/13/19 11:21 venom-honey bee Allergy Hives Verified 08/23/14 13:10 [bee venom (honey bee)] Home Medications Medication Instructions Recorded Confirmed Last Taken Type No Known Home Medications [No 03/13/19 03/13/19 Unknown History Reported Home Medications] Active Meds: Active Medications Acetaminophen (Tylenol) 650 mg PO Q4H PRN PRN Reason: Pain MILD(1-3)/Fever >100.5/DOZIER Aspirin (Baby Aspirin) 81 mg PO QDAY [facility] Last Admin: 03/17/19 09:38 Dose: 81 mg Documented by: Atorvastatin Calcium (Lipitor) 40 mg PO QHS [facility] Last Admin: 03/16/19 22:50 Dose: 40 mg Documented by: Atropine Sulfate (Atropine 0.1% (Cardiac)) 1 mg IV ONCE PRN PRN Reason: Bradycardia Clopidogrel Bisulfate (Plavix) 75 mg PO QDAY [facility] Last Admin: 03/17/19 09:38 Dose: 75 mg Documented by: Dextrose (D50w (25gm) Syringe) 50 ml IV PRN PRN PRN Reason: Hypoglycemia Famotidine (Pepcid) 20 mg PO BID [facility] Last Admin: 03/17/19 09:38 Dose: 20 mg Documented by: Hydromorphone HCl (Dilaudid) 0.5 mg IV Q3H PRN PRN Reason: Pain , Severe (7-10) Last Admin: 03/16/19 03:48 Dose: 0.5 mg Documented by: Sodium Chloride (Nacl 0.9% 1000 Ml) 1,000 mls @ 100 mls/hr IV DIRECT DEONDRE Last Admin: 03/16/19 13:32 Dose: 100 mls/hr Documented by: Insulin Human Regular (Humulin R) 0 units SUB-Q ACHS DEONDRE; Protocol Last Admin: 03/17/19 11:30 Dose: Not Given Documented by: Metoclopramide HCl (Reglan) 10 mg IV Q6H PRN PRN Reason: Nausea And Vomiting Ondansetron HCl (Zofran) 4 mg IV Q3H PRN PRN Reason: Nausea And Vomiting Last Admin: 03/14/19 13:13 Dose: 4 mg Documented by: Oxycodone/Acetaminophen (Percocet 5/325) 1 tab PO Q6H PRN PRN Reason: Pain, Moderate (4-6) Last Admin: 03/14/19 06:08 Dose: 1 tab Documented by: Sodium Chloride (Sodium Chloride Flush Syringe 10 Ml) 10 ml IV BID [facility] Last Admin: 03/17/19 09:38 Dose: 10 ml Documented by: Sodium Chloride (Sodium Chloride Flush Syringe 10 Ml) 10 ml IV PRN PRN PRN Reason: LINE FLUSH Review of Systems Constitutional: no fever, no chills Ears, nose, mouth and throat: no ear pain, no ear discharge, no sore throat Cardiovascular: no chest pain, no palpitations, no lightheadedness, no shortness of breath Respiratory: no cough, no hemoptysis, no shortness of breath Gastrointestinal: no abdominal pain, no nausea, no vomiting, no diarrhea, no constipation Genitourinary Male: no dysuria, no urinary frequency Rectal: no pain, no bleeding Musculoskeletal: no neck stiffness, no neck pain, no myalgias Integumentary: no rash, no pruritis Neurological: ataxia, vertigo, no headaches Endocrine: no cold intolerance, no heat intolerance Hematologic/Lymphatic: no easy bruising, no easy bleeding Allergic/Immunologic: no urticaria, no wheezing Physical Examination Vital Signs Last Vital Signs Temp 97.5 F L 07/20/19 08:14 Pulse 50 L 03/17/19 10:00 Resp 16 03/17/19 10:00 BP 140/67 03/17/19 08:14 Pulse Ox 98 03/17/19 10:00 General appearance: no acute distress HEENT: Positive: EOMI, Normocephaly Neck: Positive: neck supple, trachea midline Cardiac: Positive: Reg Rate and Rhythm, S1/S2 Lungs: Positive: clear to auscultation Neuro: Positive: Other (ataxia) Abdomen: Positive: Soft, Active Bowel Sounds. Negative: Tender Skin: Positive: Clear. Negative: Rash Musculoskeletal: Normal Range of Motion Extremities: Present: normal. Absent: edema Results 03/14/19 04:52 03/14/19 04:52 - Imaging and Cardiology EKG: image reviewed EKG interpretations - Telemetry EKG Rhythm: Sinus Rhythm - EKG Sinus rhythms and dysrhythmias: sinus rhythm Assessment and Plan Although the exact etiology of his sinus bradycardia is uncertain, autonomic dysfunction associated with sinus bradycardia may rarely occur in the setting of cerebellar/brainstem stroke. Will avoid AV blocking meds. Utilize Hydralazine for BP control. - Patient Problems (1) Cerebellar infarct Current Visit: Yes Status: Acute (2) Sinus bradycardia Current Visit: Yes Status: Acute (3) Ataxia Current Visit: Yes Status: Acute (4) Hypertension Current Visit: Yes Status: Chronic Qualifiers: Hypertension type: essential hypertension Qualified Code(s): I10 - Es sential (primary) hypertension
[2019-03-17] MEDS: NACL 0.9% 1000 ML 1,000 ML IV SCH (22:33)
[2019-03-17] MEDS: APRESOLINE PO SCH (22:36)
[2019-03-18 06:53] LABS: BUN/Creatinine Ratio 18; Blood Urea Nitrogen 11 mg/dL (9-20); Calcium 8.4 mg/dL (8.4-10.2); Hemolysis Index 6
[2019-03-18] MEDS: DILAUDID IV PRN ×3 (08:45→16:10)
[2019-03-18] MEDS: HumuLIN R SUB-Q SCH ×4 (09:13→22:16)
[2019-03-18] MEDS: PLAVIX PO SCH (09:31)
[2019-03-18] MEDS: APRESOLINE PO SCH ×2 (09:31→22:15)
[2019-03-18] MEDS: K-DUR PO SCH ×2 (09:31→12:43)
[2019-03-18] MEDS: PEPCID PO SCH ×2 (09:31→22:16)
[2019-03-18] MEDS: BABY ASPIRIN PO SCH (09:31)
[2019-03-18] MEDS: SODIUM CHLORIDE FLUSH SYRINGE 10 ML IV SCH ×2 (09:32→22:16)
[2019-03-18] MEDS: NACL 0.9% 1000 ML 1,000 ML IV SCH (09:32)
[2019-03-18] MEDS ORDERED: DULCOLAX PO PRN (10:40)
--- NOTE | 2019-03-18 10:40 | Progress Note ---
Assessment and Plan Assessment and plan: --Asymptomatic bradycardia; back to baseline and 40s and 50s Sometimes drops to 30s, cardiology following --Ataxia/unsteady gait Secondary to acute cerebellar infarct Fall precautions, PT,OT --Acute Cerebellar infarct: Not a candidate for TPA Aspirin and statin, fall precautions Physical therapy occupational therapy, rehabilitation Workup so far: CT head without contrast; no acute abnormality noted CTA head; no hemodynamically significant stenosis large vessel occlusion or aneurysm CTA neck; no hemodynamically significant stenosis MRI brain: Acute infarct involving the superior right cerebellum MRA Brain: Absence of significant proximal intracranial segments of the vertebral arteries indicative of occlusion of the bases mild to moderate narrowing of the basilar artery distally. Carotid Doppler; no hemodynamically significant stenosis Echocardiogram;EF 55-60% --Type 2 diabetes mellitus; Accu-Chek sliding scale coverage and ADA diet Insulin as needed, A1c 8.2 --DVT prophylaxis; Lovenox Follow neurology evaluation and recommendations Monitor closely and adjust management as needed DC planning per case management; patient needs skilled PT and OT possible home with home health versus subacute rehabilitation History Interval history: Patient seen and examined medical records reviewed Complaints of unsteady gait Vital signs noted, heart rate in 40s to 50s Hospitalist Physical - Constitutional Vitals: Temp Pulse Resp BP Pulse Ox 98.0 F 43 L 18 140/71 98 03/18/19 04:18 03/18/19 04:18 03/18/19 04:18 03/18/19 04:18 03/18/19 04:18 General appearance: Present: no acute distress, well-nourished - EENT Eyes: Present: PERRL, EOM intact - Neck Neck: Present: supple, normal ROM - Respiratory Respiratory effort: normal Respiratory: bilateral: diminished, negative: rales, rhonchi, wheezing - Cardiovascular Rhythm: regular Heart Sounds: Present: S1 & S2 - Extremities Extremities: no ischemia, No edema - Abdominal General gastrointestinal: soft, non-tender, non-distended, normal bowel sounds - Integumentary Integumentary: Present: clear, warm - Psychiatric Psychiatric: appropriate mood/affect, cooperative - Neurologic Neurologic: other (ataxia) Results - Labs CBC & Chem 7: 03/14/19 04:52 03/18/19 05:27 Labs: Laboratory Last Values WBC 12.7 K/mm3 (4.5-11.0) H 03/14/19 04:52 RBC 4.88 M/mm3 (3.65-5.03) 03/14/19 04:52 Hgb 16.2 gm/dl (11.8-15.2) H 03/14/19 04:52 Hct 47.6 % (35.5-45.6) H 03/14/19 04:52 MCV 98 fl (84-94) H 03/14/19 04:52 MCH 33 pg (28-32) H 03/14/19 04:52 MCHC 34 % (32-34) 03/14/19 04:52 RDW 14.4 % (13.2-15.2) 03/14/19 04:52 Plt Count 263 K/mm3 (140-440) 03/14/19 04:52 Lymph % (Auto) 20.7 % (13.4-35.0) 03/14/19 04:52 [place] % (Auto) 7.0 % (0.0-7.3) 03/14/19 04:52 Eos % (Auto) 0.6 % (0.0-4.3) 03/14/19 04:52 Baso % (Auto) 0.4 % (0.0-1.8) 03/14/19 04:52 Lymph # 2.6 K/mm3 (1.2-5.4) 03/14/19 04:52 [place] # 0.9 K/mm3 (0.0-0.8) H 03/14/19 04:52 Eos # 0.1 K/mm3 (0.0-0.4) 03/14/19 04:52 Baso # 0.1 K/mm3 (0.0-0.1) 03/14/19 04:52 Seg Neutrophils % 71.3 % (40.0-70.0) H 03/14/19 04:52 Seg Neutrophils # 9.1 K/mm3 (1.8-7.7) H 03/14/19 04:52 POC ABG pH 7.404 (7.35-7.45) 03/13/19 15:21 POC ABG pCO2 37.3 (35-45) 03/13/19 15:21 POC ABG pO2 67 (80-105) L 03/13/19 15:21 POC ABG HCO3 23.3 (22-26 mml/L) 03/13/19 15:21 POC ABG Total CO2 24 (23-27mmol/L) 03/13/19 15:21 POC ABG O2 Sat 93 03/13/19 15:21 POC ABG Base Excess -1 ((-2) - (+3)mmol/L) 03/13/19 15:21 21 % 03/13/19 15:21 Sodium 140 mmol/L (137-145) 03/18/19 05:27 Potassium 3.2 mmol/L (3.6-5.0) L 03/18/19 05:27 Chloride 104.9 mmol/L (98-107) 03/18/19 05:27 Carbon Dioxide 22 mmol/L (22-30) 03/18/19 05:27 16 mmol/L 03/18/19 05:27 BUN 11 mg/dL (9-20) 03/18/19 05:27 0.6 mg/dL (0.8-1.5) L 03/18/19 05:27 Estimated GFR > 60 ml/min 03/18/19 05:27 18 % 03/18/19 05:27 Glucose 164 mg/dL (75-100) H 03/18/19 05:27 POC Glucose 141 (70-105) H 03/18/19 08:10 8.2 % (4-6) H 03/13/19 23:55 Calcium 8.4 mg/dL (8.4-10.2) 03/18/19 05:27 1.00 mg/dL (0.1-1.2) 03/14/19 04:52 AST 17 units/L (5-40) 03/14/19 04:52 ALT 25 units/L (7-56) 03/14/19 04:52 77 units/L (35-129) 03/14/19 04:52 41.0 umol/L (25-60) 03/13/19 10:52 < 0.010 ng/mL (0.00-0.029) 03/13/19 10:52 6.9 g/dL (6.3-8.2) 03/14/19 04:52 4.0 g/dL (3.9-5) 03/14/19 04:52 1.4 % 03/14/19 04:52 Triglycerides 231 mg/dL (2-149) H 03/15/19 04:08 Cholesterol 173 mg/dL (50-199) 03/15/19 04:08 121 mg/dL (50-130) 03/15/19 04:08 27 mg/dL (40-59) L 03/15/19 04:08 6.40 % 03/15/19 04:08 TSH 2.190 mlU/mL (0.270-4.200) 03/18/19 05:27 Free T4 1.23 ng/dL (0.76-1.46) 03/18/19 05:27 Yellow (Yellow) 03/13/19 13:29 Clear (Clear) 03/13/19 13:29 7.0 (5.0-7.0) 03/13/19 13:29 Ur Specific [place] 1.029 (1.003-1.030) 03/13/19 13:29 <15 mg/dl mg/dL (Negative) 03/13/19 13:29 >=500 mg/dL (Negative) 03/13/19 13:29 20 mg/dL (Negative) 03/13/19 13:29 Neg (Negative) 03/13/19 13:29 Neg (Negative) 03/13/19 13:29 Neg (Negative) 03/13/19 13:29 < 2.0 mg/dL (<2.0) 03/13/19 13:29 Ur Leukocyte Esterase Neg (Negative) 03/13/19 13:29 < 1.0 /HPF (0.0-6.0) 03/13/19 13:29 3.0 /HPF (0.0-6.0) 03/13/19 13:29 U Epithel Cells (Auto) < 1.0 /HPF (0-13.0) 03/13/19 13:29 Few /HPF 03/13/19 13:29 Presumptive negative 03/13/19 13:28 Presumptive negative 03/13/19 13:28 Ur Barbiturates Screen Presumptive negative 03/13/19 13:28 Ur Phencyclidine Scrn Presumptive negative 03/13/19 13:28 Ur Amphetamines Screen Presumptive negative 03/13/19 13:28 U Benzodiazepines Scrn Presumptive negative 03/13/19 13:28 Presumptive negative 03/13/19 13:28 U Marijuana (THC) Screen Presumptive negative 03/13/19 13:28 Disclamer 03/13/19 13:28 Plasma/Serum Alcohol < 0.01 % (0-0.07) 03/13/19 10:52 Active Medications - Current Medications Current Medications: Generic Name Dose Route Start Last Admin Trade Name Freq PRN Reason Stop Dose Admin Acetaminophen 650 mg 03/13/19 23:55 Tylenol PO Q4H PRN Pain MILD(1-3)/Fever >100.5/DOZIER Aspirin 81 mg 03/15/19 10:00 03/18/19 09:31 Baby Aspirin PO 81 mg QDAY DEONDRE Administration Atorvastatin Calcium 40 mg 03/14/19 22:00 03/17/19 22:35 Lipitor PO 40 mg QHS DEONDRE Administration Atropine Sulfate 1 mg 03/17/19 08:27 Atropine 0.1% (Cardiac) IV ONCE PRN Bradycardia Clopidogrel Bisulfate 75 mg 03/15/19 10:00 03/18/19 09:31 Plavix PO 75 mg QDAY DEONDRE Administration Dextrose 50 ml 03/13/19 22:25 D50w (25gm) Syringe IV PRN PRN Hypoglycemia Famotidine 20 mg 03/15/19 10:00 03/18/19 09:31 Pepcid PO 20 mg BID DEONDRE Administration Hydralazine HCl 25 mg 03/17/19 22:00 03/18/19 09:31 Apresoline PO 25 mg BID DEONDRE Administration Hydromorphone HCl 0.5 mg 03/13/19 23:55 03/18/19 08:45 Dilaudid IV 0.5 mg Q3H PRN Administration Pain , Severe (7-10) Sodium Chloride 1,000 mls @ 100 mls/hr 03/13/19 23:45 03/18/19 09:32 Nacl 0.9% 1000 Ml IV 100 mls/hr DIRECT DEONDRE Administration Insulin Human Regular 0 units 03/14/19 07:30 03/18/19 09:13 Humulin R SUB-Q Not Given ACHS [facility] Protocol Metoclopramide HCl 10 mg 03/13/19 23:55 Reglan IV Q6H PRN Nausea And Vomiting Ondansetron HCl 4 mg 03/13/19 23:55 03/14/19 13:13 Zofran IV 4 mg Q3H PRN Administration Nausea And Vomiting Oxycodone/Acetaminophen 1 tab 03/13/19 23:55 03/14/19 06:08 Percocet 5/325 PO 1 tab Q6H PRN Administration Pain, Moderate (4-6) Potassium Chloride 40 meq 03/18/19 09:00 03/18/19 09:31 K-Dur PO 03/18/19 12:01 40 meq Q3H DEONDRE Administration Sodium Chloride 10 ml 03/14/19 10:00 03/18/19 09:32 Sodium Chloride Flush Syringe 10 Ml IV 10 ml BID DEONDRE Administration Sodium Chloride 10 ml 03/13/19 23:55 Sodium Chloride Flush Syringe 10 Ml IV PRN PRN LINE FLUSH
[2019-03-18] MEDS ORDERED: MILK OF MAGNESIA PO ONE (11:00)
[2019-03-18] MEDS ORDERED: MILK OF MAGNESIA PO PRN (11:05)
--- NOTE | 2019-03-18 11:51 | Progress Note ---
Assessment and Plan Stable cardiac status. Bradycardia may be an autonomic effect of his cerebellar stroke. Rx KCL. Continue hydralazine for BP. - Patient Problems (1) Cerebellar infarct Current Visit: Yes Status: Acute (2) Sinus bradycardia Current Visit: Yes Status: Acute (3) Ataxia Current Visit: Yes Status: Acute (4) Hypertension Current Visit: Yes Status: Chronic Qualifiers: Hypertension type: essential hypertension Qualified Code(s): I10 - Essential (primary) hypertension Subjective Date of service: 03/18/19 Principal diagnosis: Acute cerebellar infarct, Sinus Bradycardia, Ataxia, HTN Interval history: No new complaint. Remains in asymptomatic sinus bradycardia. Objective Vital Signs Temp Pulse Pulse Pulse Resp BP BP 03/18/19 10:00 43 L 03/18/19 04:18 98.0 F 43 L 18 140/71 03/17/19 22:40 48 L 48 L 18 03/17/19 22:36 48 L 151/66 03/17/19 22:34 98.0 F 47 L 18 151/66 03/17/19 19:48 43 L 03/17/19 17:58 97.8 F 49 L 16 155/69 03/17/19 14:20 48 L 139/79 Pulse Ox 03/18/19 10:00 03/18/19 04:18 98 03/17/19 22:40 97 03/17/19 22:36 03/17/19 22:34 96 03/17/19 19:48 03/17/19 17:58 97 03/17/19 14:20 - Physical Examination General: No Apparent Distress HEENT: Positive: EOMI, Normocephaly Neck: Positive: neck supple, trachea midline Cardiac: Positive: Reg Rate and Rhythm, S1/S2 Lungs: Positive: clear to auscultation Neuro: Positive: Other (ataxia) Abdomen: Positive: Soft, Active Bowel Sounds. Negative: Tender Skin: Positive: Clear. Negative: Rash Musculoskeletal: Normal Range of Motion Extremities: Present: normal. Absent: edema - Labs and Meds Comprehensive Metabolic Panel 03/18/19 Range/Units 05:27 Sodium 140 (137-145) mmol/L Potassium 3.2 L (3.6-5.0) mmol/L Chloride 104.9 (98-107) mmol/L Carbon Dioxide 22 (22-30) mmol/L BUN 11 (9-20) mg/dL Creatinine 0.6 L (0.8-1.5) mg/dL Glucose 164 H (75-100) mg/dL Calcium 8.4 (8.4-10.2) mg/dL - Imaging and Cardiology EKG: image reviewed - Telemetry EKG Rhythm: Sinus Bradycardia - EKG Sinus rhythms and dysrhythmias: sinus rhythm
[2019-03-19 05:14] LABS: BUN/Creatinine Ratio 14; Blood Urea Nitrogen 13 mg/dL (9-20); Calcium 8.8 mg/dL (8.4-10.2); Hemolysis Index 6
[2019-03-19] MEDS: BABY ASPIRIN PO SCH (09:45)
[2019-03-19] MEDS: APRESOLINE PO SCH (09:45)
[2019-03-19] MEDS: PLAVIX PO SCH (09:45)
[2019-03-19] MEDS: HumuLIN R SUB-Q SCH ×2 (09:45→13:25)
[2019-03-19] MEDS: PEPCID PO SCH (09:45)
[2019-03-19] MEDS: SODIUM CHLORIDE FLUSH SYRINGE 10 ML IV SCH (09:45)
--- NOTE | 2019-03-19 13:34 | Progress Note ---
Assessment and Plan Stable cardiac status. Bradycardia may be an autonomic effect of his cerebellar stroke. Continue hydralazine for BP. Pt may discharge home from cardiology standpoint. Recommend follow up in our office with Dr. Polanco within 1-2 weeks of hospital discharge ([phone]). The patient has been seen in conjunction with Dr. Mendoza who agrees with the assessment and plan of care. - Patient Problems (1) Cerebellar infarct Current Visit: Yes Status: Acute (2) Sinus bradycardia Current Visit: Yes Status: Acute (3) Ataxia Current Visit: Yes Status: Acute (4) Hypertension Current Visit: Yes Status: Chronic Qualifiers: Hypertension type: essential hypertension Qualified Code(s): I10 - Essential (primary) hypertension (5) Tobacco use Current Visit: Yes Status: Chronic Subjective Date of service: 03/19/19 Principal diagnosis: Acute cerebellar infarct, Sinus Bradycardia, Ataxia, HTN Interval history: pt resting in bed, no current cardiac complaints, weakness and ataxia are improving. tele reviewed - in SR HR 60s with SB HR low of 38bpm noted overnight while sleeping, no pauses. Objective Last Vital Signs Temp 98.6 F 03/19/19 11:35 Pulse 50 L 03/19/19 11:35 Resp 18 03/19/19 11:35 BP 137/74 03/19/19 11:35 Pulse Ox 97 03/19/19 11:35 - Physical Examination General: No Apparent Distress HEENT: Positive: EOMI, Normocephaly Neck: Positive: neck supple, trachea midline Cardiac: Positive: S1/S2, Bradycardia Lungs: Positive: Decreased Breath Sounds Neuro: Positive: Other (ataxia) Abdomen: Positive: Soft, Active Bowel Sounds. Negative: Tender Skin: Positive: Clear. Negative: Rash Musculoskeletal: Normal Range of Motion Extremities: Present: normal. Absent: edema - Labs and Meds Comprehensive Metabolic Panel 03/19/19 Range/Units 04:01 Sodium 141 (137-145) mmol/L Potassium 4.2 D (3.6-5.0) mmol/L Chloride 104.3 (98-107) mmol/L Carbon Dioxide 27 (22-30) mmol/L BUN 13 (9-20) mg/dL Creatinine 0.9 (0.8-1.5) mg/dL Glucose 173 H (75-100) mg/dL Calcium 8.8 (8.4-10.2) mg/dL - Imaging and Cardiology EKG: image reviewed - EKG Sinus rhythms and dysrhythmias: sinus rhythm
--- NOTE | 2019-03-19 16:01 | Discharge Summary ---
Providers - Providers Date of Admission: 03/13/19 17:57 Date of discharge: 03/19/19 Attending physician: HARLEY SINGH 03/13/19 23:55 Consult to Physician [CONS] Routine Comment: Consulting Provider: CEE GRANDA Physician Instructions: Reason For Exam: Ataxia 03/14/19 01:19 Occupational Therapy Evaluate and Treat [CONS] Routine Comment: Reason For Exam: Neuro deficits Physical Therapy Evaluation and Treat [CONS] Routine Comment: Reason For Exam: Neuro deficits 03/17/19 08:10 Consult to Physician [CONS] Routine Comment: Consulting Provider: CHRIS VUONG Physician Instructions: Reason For Exam: Bradycardia HR 30s-40s,cerebellar stroke [facility] Condition: Serious Pertinent studies: Workup so far: CT head without contrast; no acute abnormality noted CTA head; no hemodynamically significant stenosis large vessel occlusion or aneurysm CTA neck; no hemodynamically significant stenosis MRI brain: Acute infarct involving the superior right cerebellum MRA Brain: Absence of significant proximal intracranial segments of the vertebral arteries indicative of occlusion of the bases mild to moderate narrowing of the basilar artery distally. Carotid Doppler; no hemodynamically significant stenosis Echocardiogram;EF 55-60% Disposition: DC-01 TO HOME OR SELFCARE Time spent for discharge: 32 min Core Measure Documentation - Palliative Care Palliative Care/ Comfort Measures: Not Applicable - Core Measures Any of the following diagnoses?: stroke - Stroke Discharge Requirements Statin for LDL = or >70 mg/dl on DC: Yes Anticoag for atrial fib/atrial flutter: Not Applicable (No afib/flutter) Reason for no anticoag for AF/F on DC: Not Indicated Antithrombotic for ischemic stroke: Yes Exam - Constitutional Vitals: Temp Pulse Resp BP Pulse Ox 98.6 F 50 L 18 137/74 97 03/19/19 11:35 03/19/19 11:35 03/19/19 11:35 03/19/19 11:35 03/19/19 11:35 General appearance: Present: no acute distress, well-nourished - EENT Eyes: Present: PERRL, EOM intact - Neck Neck: Present: supple, normal ROM - Respiratory Respiratory effort: normal Respiratory: negative: rales, rhonchi, wheezing - Cardiovascular Rhythm: regular Heart Sounds: Present: S1 & S2 - Extremities Extremities: no ischemia, No edema - Abdominal General gastrointestinal: Present: soft, non-tender, non-distended, normal bowel sounds - Integumentary Integumentary: Present: clear, warm - Musculoskeletal Musculoskeletal: strength equal bilaterally, other (unsteady gait) - Psychiatric Psychiatric: other - Neurologic Neurologic: moves all extremities, other (unsteady gait) Plan Activity: advance as tolerated, fall precautions Diet: other (Cardiac diet) Additional Instructions: Fall precautions. Advised follow private neurologist in 1 week. f/u Betting Clerk in 1-2 wks Follow up with: PRIMARY CARE, [Referring] - 3-5 Days MARC ALLEN MD [Staff Physician] - 7 Days JOSÉ ANTONIO PRITCHETT MD [Staff Physician] - 7 Days Prescriptions: hydrALAZINE [Apresoline TAB] 50 mg PO BID #60 tablet AtorvaSTATin [Lipitor] 40 mg PO QHS #30 tablet Clopidogrel [Plavix] 75 mg PO QDAY #30 tablet
[2019-03-19 16:05] VITALS: BP 152/58
== END 2019-03-19 17:16 | disposition home health service (06) | DRG 66 ==
LOC: ED 09:51 → 4A 17:57
PROVIDERS: ADMIT Internal Medicine; ATTEND Internal Medicine
PROC: 4A033R1 Measurement of Arterial Saturation, Peripheral, Percutaneous Approach (ICD-10-PCS; principal; 2019-03-13)
DX: I63.9 Cerebral infarction, unspecified (principal); E87.5 Hyperkalemia; I10 Essential (primary) hypertension; E11.9 Type 2 diabetes mellitus without complications; Z96.651 Presence of right artificial knee joint; R00.1 Bradycardia, unspecified; E78.00 Pure hypercholesterolemia, unspecified; E86.0 Dehydration; R26.0 Ataxic gait; F17.210 Nicotine dependence, cigarettes, uncomplicated; F32.9 Major depressive disorder, single episode, unspecified; Z82.49 Family history of ischemic heart disease and other diseases of the circulatory system; Z91.030 Bee allergy status; Z88.0 Allergy status to penicillin; Z91.018 Allergy to other foods; Z71.6 Tobacco abuse counseling; Z79.84 Long term (current) use of oral hypoglycemic drugs
CPT/HCPCS: 36415; 36600; 70450; 70496; 70498; 70544; 70551; 80048; 80053; 80061; 80307; 80320; 81001; 82140; 82803; 82962; 83036; 83735; 84439; 84443; 84484; 85025; 93005; 93010; 93306; 93880; 96361; 96374; 99406; G0378; A9270-GY; G0480; J1170; J1815; J2405; J7030; Q9967